=== PATIENT | male | born 1965 | race Caucasian/White ===

== ENCOUNTER 2016-06-26 11:24 | Inpatient (IN) | payer MEDICARE, OTHER ==
[2016-06-26] VITALS (9 sets, daily range): BP systolic 112–120; BP diastolic 53–60; PULSE 97–103; RESP 16–20; TEMP 98.3–98.9; O2SAT 94–98
[~2016-06-26] VITALS: Ht 182.9 cm; Wt 129.4 kg
[~2016-06-26 11:24] MED LIST: DILTCD180 PO; DOCU1CAP39 PO; FURO1TAB93 PO; LACT20SO4 PO; SPIR50TA21 PO
[2016-06-26] MEDS ORDERED: SODIUM CHLOR 0.9% 1000 ML INJ 1,000 ML IV SCH ×2 (12:49→16:15)
--- NOTE | 2016-06-26 12:59 | PD ---
HPI Chief Complaint: Abdominal Pain Time Seen by Provider: 12:35 Travel History International Travel<30 days: No Contact w/Intl Traveler<30days: No Traveled to known affect area: No History of Present Illness HPI 51-year-old male complains of abdominal pain. Patient has history of liver cirrhosis abdominal hernia and chronic abdominal pain. Patient states that he was advised by his physician to be in hospice so he can get pain medication. Patient states that the pain cramping pain and sharp pain diffuse over the abdomen. Patient denies any pain radiation. Patient denies any nausea vomiting diarrhea. Patient denies any fever chills. Patient Denies dysuria or frequency. Patient has history of kidney disease was on dialysis in the past. Patient also has history of anxiety, asthma, depression, diabetes, hepatitis C, hypertension, migraine and sleep apnea. Patient states that the abdominal pain is worse for the past few days and he was advised by his physician to go to ED for evaluation. PFSH Past Medical History Arthritis: Yes Asthma: Yes Autoimmune Disease: No Blood Disorders: No Anxiety: Yes (OCCASSIONALLY) Depression: Yes Heart Rhythm Problems: Yes (HEART MURMUR) Cancer: No Cardiovascular Problems: Yes High Cholesterol: No Chest Pain: Yes Congestive Heart Failure: No Cirrhosis: Yes COPD: No Cerebrovascular Accident: No Diabetes: Yes Patient Takes Glucophage: No Dialysis: Yes (10 years ago) Diminished Hearing: No Endocrine: Yes Gastrointestinal Disorders: Yes GERD: No Glaucoma: No Genitourinary: No Headaches: No Hepatitis: Yes (HEP C) Hiatal Hernia: No Hypertension: Yes Immune Disorder: No Implanted Vascular Access Dvce: Yes Kidney Stones: No Musculoskeletal: Yes Neurologic: Yes Psychiatric: Yes Reproductive: No Respiratory: Yes Migraines: Yes Myocardial Infarction: No Renal Failure: No Seizures: No Sleep Apnea: Yes Thyroid Disease: No Ulcer: No Past Surgical History Abdominal Surgery: No Appendectomy: No Arteriovenous Shunt: No Body Medical Devices: SCREWS/TITANIUM IN RIGHT LEG Cardiac Surgery: No Cholecystectomy: No Ear Surgery: No Endocrine Surgery: No Eye Surgery: No Genitourinary Surgery: No Gynecologic Surgery: No Insulin Pump: No Joint Replacement: No Neurologic Surgery: No Oral Surgery: No Pacemaker: No Thoracic Surgery: No Other Surgery: Yes Social History Alcohol Use: No (DENIES) Tobacco Use: No (chews) Substance Use: Yes (ALCOHOL) Allergies-Medications (Allergen,Severity, Reaction): Coded Allergies: Morphine (Verified Adverse Reaction, Intermediate, Nausea/Vomiting, 06/26/16 ) *MDRO Multi-Drug Resistant Organism (Verified Adverse Reaction, Unknown, ) MRSA (arm wound) - 08/2008 Reported Meds & Prescriptions Reported Meds & Active Scripts Active Reported Potassium Chloride ER (Potassium Chloride) Unknown Strength Cap 1 Tab PO DAILY Pantothenic Acid 500 Mg Tab 1 Tab PO BID Lactulose Liq (Lactulose) 10 Gm/15 Ml Soln 30 Ml PO TID Aldactone (Spironolactone) 50 Mg Tab 50 Mg PO BID Lasix (Furosemide) 40 Mg Tab 40 Mg PO TID Review of Systems General / Constitutional: No: Fever Eyes: No: Visual changes HENT: No: Headaches Cardiovascular: No: Chest Pain or Discomfort Respiratory: No: Shortness of Breath Gastrointestinal: Positive: Abdominal Pain Genitourinary: No: Dysuria Musculoskeletal: No: Pain Skin: No Rash Neurologic: No: Weakness Psychiatric: No: Depression Endocrine: No: Polydipsia Hematologic/Lymphatic: No: Easy Bruising Physical Exam Narrative GENERAL: Well-nourished, well-developed patient. SKIN: Focused skin assessment warm/dry. HEAD: Normocephalic. EYES: No scleral icterus. No injection or drainage. NECK: Supple, trachea midline. No JVD or lymphadenopathy. CARDIOVASCULAR: Regular rate and rhythm without murmurs, gallops, or rubs. RESPIRATORY: Breath sounds equal bilaterally. No accessory muscle use. GASTROINTESTINAL: Abdomen soft, nondistended. Patient has moderate tenderness diffuse over the abdomen with a ventral hernia noted. No rebound tenderness. No mass. MUSCULOSKELETAL: No cyanosis, or edema. BACK: Nontender without obvious deformity. No CVA tenderness. Neurologic exam normal. Data Data Last Documented VS Vital Signs Date Time Temp Pulse Resp B/P Pulse Ox O2 Delivery O2 Flow Rate FiO2 06/26/16 15:55 99 18 116/56 95 Room Air 06/26/16 11:36 98.3 Orders Vascular Access Team Consult PRN (06/26/16 12:49) Complete Blood Count With Diff (06/26/16 12:49) Comprehensive Metabolic Panel (06/26/16 12:49) Lipase (06/26/16 12:49) Prothrombin Time / Inr (Pt) (06/26/16 12:49) Act Partial Throm Time (Ptt) (06/26/16 12:49) Urinalysis - C+S If Indicated (06/26/16 12:49) Ct Abd/Pel W Iv Contrast(Rout) (06/26/16 12:49) Iv Access Insert/Monitor (06/26/16 12:49) Ecg Monitoring (06/26/16 12:49) Oximetry (06/26/16 12:49) Ondansetron Inj (Zofran Inj) (06/26/16 13:00) Pantoprazole Inj (Protonix Inj) (06/26/16 13:00) Sodium Chlor 0.9% 1000 Ml Inj (Ns 1000 M (06/26/16 12:49) Hydromorphone Pf Inj (Dilaudid Pf Inj) (06/26/16 13:00) Ammonia (06/26/16 12:59) Vascular Access Team Consult PRN (06/26/16 13:02) Vascular Poc Ultrasound (06/26/16 ) Urine Culture (06/26/16 13:07) Iohexol 350 Inj (Omnipaque 350 Inj) (06/26/16 14:47) Fresh Frozen Plasma (Ffp) (06/26/16 15:58) Blood Product Administration .UPON TRANSFUSION (06/26/16 15:58) Sodium Chlor 0.9% 250 Ml Inj (Ns 250 Ml (06/26/16 16:00) Sodium Chlor 0.9% 1000 Ml Inj (Ns 1000 M (06/26/16 16:15) Blood Culture (06/26/16 16:28) Lactic Acid Sepsis Protocol (06/26/16 16:28) Piperacil-Tazo 3.375 Gm Premix (Zosyn 3. (06/26/16 16:30) Vancomycin Inj (Vancomycin Inj) (06/26/16 16:30) Labs Laboratory Tests Test 06/26/16 13:07 White Blood Count 20.1 TH/MM3 Red Blood Count 2.56 MIL/MM3 Hemoglobin 9.2 GM/DL Hematocrit 26.3 % Mean Corpuscular Volume 102.8 FL Mean Corpuscular Hemoglobin 35.9 PG Mean Corpuscular Hemoglobin 34.9 % Concent Red Cell Distribution Width 15.3 % Platelet Count 124 TH/MM3 Mean Platelet Volume 8.0 FL Neutrophils (%) (Auto) 88.8 % Lymphocytes (%) (Auto) 3.9 % Monocytes (%) (Auto) 6.1 % Eosinophils (%) (Auto) 0.7 % Basophils (%) (Auto) 0.5 % Neutrophils # (Auto) 17.8 TH/MM3 Lymphocytes # (Auto) 0.8 TH/MM3 Monocytes # (Auto) 1.2 TH/MM3 Eosinophils # (Auto) 0.1 TH/MM3 Basophils # (Auto) 0.1 TH/MM3 CBC Comment DIFF FINAL Differential Comment Prothrombin Time 21.4 SEC Prothromb Time International 1.9 RATIO Ratio Activated Partial 45.7 SEC Thromboplast Time Urine Color DARK-YELLOW Urine Turbidity HAZY Urine pH 5.5 Urine Specific [place] 1.016 Urine Protein TRACE mg/dL Urine Glucose (UA) NEG mg/dL Urine Ketones NEG mg/dL Urine Occult Blood SMALL Urine Nitrite NEG Urine Bilirubin SMALL Urine Urobilinogen 2.0 MG/DL Urine Leukocyte Esterase LARGE Urine RBC 1 /hpf Urine WBC 91 /hpf Urine Squamous Epithelial <1 /hpf Cells Urine Bacteria FEW /hpf Urine Hyaline Casts 2 /lpf Microscopic Urinalysis Comment CULTURE INDICATED Sodium Level 130 MEQ/L Potassium Level 4.9 MEQ/L Chloride Level 101 MEQ/L Carbon Dioxide Level 22.3 MEQ/L Anion Gap 7 MEQ/L Blood Urea Nitrogen 40 MG/DL Creatinine 1.62 MG/DL Estimat Glomerular Filtration 45 ML/MIN Rate Random Glucose 108 MG/DL Calcium Level 8.0 MG/DL Total Bilirubin 5.1 MG/DL Aspartate Amino Transf 49 U/L (AST/SGOT) Alanine Aminotransferase 25 U/L (ALT/SGPT) Alkaline Phosphatase 140 U/L Ammonia 46 MCMOL/L Total Protein 8.1 GM/DL Albumin 1.4 GM/DL Lipase 172 U/L [facility] Medical Decision Making Medical Screen Exam Complete: Yes Emergency Medical Condition: Yes Interpretation(s) Last Impressions Abdomen/Pelvis CT 06/26/16 2199 Signed Impressions: Service Date/Time: Sunday, June 26, 2016 14:26 - CONCLUSION: 1. 10.1 x 14.5 cm high density mass within the left rectus sheath most consistent with rectus hematoma. 2. Diffuse induration of the subcutaneous soft tissues in the left flank possibly related to asymmetric edema however underlying cellulitis could have this appearance as well. 3. Cirrhotic appearing liver with enlargement of the spleen, varices and ascites. Findings would be consistent with cirrhosis and portal hypertension. Christian Mejia MD 1533 PM. CBC WBC 20.1. Hemoglobin 9.2 hematocrit 26.3. MCV 102.8. 88 neutrophil. Sodium 130. BUN 40. Creatinine 1.62. Calcium 8.0. Total bili 5.1. AST 49. Alkaline phosphatase 140. Ammonia 46. INR 1.9. UA positive with WBC and bacteria. Differential Diagnosis Differential diagnosis including acute coronary abdominal pain, incarcerated hernia, strangulate it hernia, gastritis, pancreatitis, colitis, UTI, pyelonephritis, nephrolithiasis. Narrative Course 51-year-old male with exacerbation abdominal pain. History of liver cirrhosis and abdominal hernia. Normal saline solution 125 cc an hour. Dilaudid 1 mg IV. Zofran 4 mg IV. Protonix 40 mg IV. Fresh frozen plasma 2 units given. Zosyn 3.375 g IV given. Vancomycin 1 g IV given. Diagnosis Primary Impression: Abdominal wall hematoma Qualified Code: S30.1XXA - Abdominal wall hematoma, initial encounter Additional Impressions: UTI (urinary tract infection) Qualified Code: N30.00 - Acute cystitis without hematuria Liver cirrhosis Qualified Code: K70.30 - Alcoholic cirrhosis of liver without ascites Coagulopathy Jaun Rivero MD Jun 26, 2016 12:59
[2016-06-26] MEDS ORDERED: HYDROmorphone HCL PF 1 MG/ML VIAL IVS ONE (13:00)
[2016-06-26] MEDS ORDERED: ONDANSETRON HCL 4 MG/2 ML VIAL IVP ONE (13:00)
[2016-06-26] MEDS ORDERED: PANTOPRAZOLE SODIUM 40 MG VIAL IVP ONE (13:00)
[2016-06-26 13:33] LABS: AUTOMATED NEUTROPHIL # 17.8 TH/MM3 (1.8-7.7); BASOPHIL # 0.1 TH/MM3 (0-0.2); BASOPHIL % 0.5 % (0.0-2.0); EOSINOPHIL # 0.1 TH/MM3 (0-0.4); EOSINOPHIL % 0.7 % (0.0-4.0); HEMATOCRIT 26.3 % (39.0-51.0); HEMO FLAGS DIFF FINAL; LYMPH % 3.9 % (9.0-44.0); LYMPHOCYTE # 0.8 TH/MM3 (1.0-4.8); MEAN CELL VOLUME 102.8 FL (80.0-100.0); MEAN CORPUSCULAR HEMOGLOBIN 35.9 PG (27.0-34.0); MEAN CORPUSCULAR HGB CONC 34.9 % (32.0-36.0); MONO % 6.1 % (0.0-8.0); NEUT % 88.8 % (16.0-70.0); PLATELET COUNT 124 TH/MM3 (150-450); RED BLOOD COUNT 2.56 MIL/MM3 (4.50-5.90); RED CELL DISTRIBUTION WIDTH 15.3 % (11.6-17.2); WHITE BLOOD COUNT 20.1 TH/MM3 (4.0-11.0)
[2016-06-26 13:35] LABS: APTT (PATIENT) 45.7 SEC (24.3-30.1); INTERNATIONAL NORMALIZED RATIO 1.9 RATIO; PROTHROMBIN TIME - PATIENT 21.4 SEC (9.8-11.6)
[2016-06-26 13:39] LABS: BACTERIA, URINE FEW /hpf; BLOOD, URINE SMALL (NEG); COMMENT (UR) CULTURE INDICATED; CULTURE IF INDICATED CULTURE INDICATED; GLUCOSE,URINE NEG (NEG); HYALINE CAST, URINE 2 /lpf (RARE); KETONE, URINE NEG (NEG); NITRITE,URINE NEG (NEG); PH, URINE 5.5 (5.0-8.5); SQUAMOUS EPITHELIAL CELL URINE <1 /hpf (0-5); URINE COLOR DARK-YELLOW (YELLW/STRAW)
[2016-06-26 13:40] LABS: ALT (GPT) 25 U/L (12-78); ANION GAP 7 MEQ/L (5-15); AST (GOT) 49 U/L (15-37); BICARBONATE 22.3 MEQ/L (21.0-32.0); BLOOD UREA NITROGEN 40 MG/DL (7-18); CHLORIDE 101 MEQ/L (98-107); GLOMERULAR FILTRATION RATE 45 ML/MIN (>89); POTASSIUM 4.9 MEQ/L (3.5-5.1); SODIUM (NA) 130 MEQ/L (136-145)
[2016-06-26 13:42] LABS: ALKALINE PHOSPHATASE 140 U/L (45-117); TOTAL BILIRUBIN ADULT 5.1 MG/DL (0.2-1.0)
[2016-06-26] MEDS ORDERED: IOHEXOL 350 MG/ML 10 ML VIAL (for RAD DIAG) IV ONE (14:47)
--- NOTE | 2016-06-26 14:57 | RADRPT ---
EXAM DATE/TIME: 06/26/2016 14:26 [place] COMPARISON: CT PULMONARY ANGIOGRAM, June 11, 2015, 11:19. INDICATIONS : Diffuse abdominal pain and cramping. IV CONTRAST: 50 cc Visipaque (iodixanol) IV ORAL CONTRAST: No oral contrast ingested. RADIATION DOSE: 26.48 CTDIvol (mGy) MEDICAL HISTORY : Cirrhosis. Renal failure, chronic. Diabetes mellitus type 2.Hepatitis C, hypertension. SURGICAL HISTORY : None. ENCOUNTER: Initial ACUITY: 1 week PAIN SCALE: 6/10 LOCATION: Bilateral abdomen TECHNIQUE: Volumetric scanning of the abdomen and pelvis was performed. Using automated exposure control and ad justment of the mA and/or kV according to patient size, radiation dose was kept as low as reasonably achievable to obtain optimal diagnostic quality images. FINDINGS: The limited portion of the lung base visualized is clear. Imaging through the upper abdomen demonstrates a lobulated, cirrhotic appearing liver with a small am ount of diffuse ascites. The spleen is enlarged. There is recanalization of the umbilical vein. Findi ngs would be consistent with cirrhosis and portal hypertension. The appearance of the pancreas, adrenal glands and kidneys is within normal limits. There is no retroperitoneal adenopathy. The abdominal aorta is normal in caliber. Visualized loops of small and large bowel are unremarkable. Examination of the anterior abdominal wall demonstrates a 14.5 x 10.1 cm high density mass within the rectus sheath this would be most consistent with a rectus sheath hematoma. In addition, there is dif fuse induration of the subcutaneous tissues along the left flank. This probably represents dependent edema but is of uncertain etiology. Underlying infection/cellulitis in this area is not excluded. There is minimal ascites within the pelvis. No iliac or inguinal adenopathy is seen. There are degenerative changes throughout the spine. CONCLUSION: 1. 10.1 x 14.5 cm high density mass within the left rectus sheath most consistent with rectus hematom a. 2. Diffuse induration of the subcutaneous soft tissues in the left flank possibly related to asymmetr ic edema however underlying cellulitis could have this appearance as well. 3. Cirrhotic appearing liver with enlargement of the spleen, varices and ascites. Findings would be c onsistent with cirrhosis and portal hypertension. Christian Mejia MD on June 26, 2016 at 14:51 Board Certified Radiologist. This report was verified electronically.
[2016-06-26] MEDS ORDERED: SODIUM CHLOR 0.9% 250 ML INJ 250 ML IV ONE (16:00)
[2016-06-26] MEDS ORDERED: ALDA50TA2 PO (16:18)
[2016-06-26] MEDS ORDERED: FURO1TAB60 PO (16:18)
[2016-06-26] MEDS ORDERED: [UNRECOGNIZED DRUG - CODE] PO (16:22)
[2016-06-26] MEDS ORDERED: LACT10SO PO (16:22)
[2016-06-26] MEDS ORDERED: POTA10CA PO (16:22)
[2016-06-26] MEDS ORDERED: PIPERACIL-TAZO 3.375 GM PREMIX 50 ML IV ONE (16:30)
[2016-06-26] MEDS ORDERED: VANCOMYCIN INJ 1,000 MG in SODIUM CHLOR 0.9% 250 ML INJ 250 ML IV ONE (16:30)
[2016-06-26] MEDS ORDERED: NALOXONE HCL 0.4 MG/ML AMP IV PRN (17:15)
[2016-06-26] MEDS ORDERED: ONDANSETRON HCL 4 MG/2 ML VIAL IVP PRN (17:15)
--- NOTE | 2016-06-26 17:22 | HHI.HP ---
HPI Service [facility] Primary [facility] Phys[facility] Non-Staff Admission Diagnosis abdominal wall hematoma. Liver cirrhosis. Coagulopathy. Diagnoses: Chief Complaint: Abdominal pain Travel History International Travel<30 Days: No Contact w/Intl Traveler <30 Da: No Traveled to Known Affected Are: No Sepsis Criteria SIRS Criteria (2 or more): Heart rate over 90, WBC > 97515, < 4000 or > 10% bands Sepsis Criteria (SIRS+source): Infect source susp/known Criteria Outcome: Meets sepsis criteria History of Present Illness 51-year-old male with a past medical history of cirrhosis who presents with progressive worsening abdominal pain and swelling. The patient states that in February he noticed the swelling of his left abdominal wall. He was seen by his PCP and subsequently at the Hospital in [place] and had imaging done with results consistent with a hernia. He states that his PCP has been managing the swelling with tramadol and had advised the patient to get physical therapy and rehabilitation. The patient states that the pain and swelling have been getting progressively worse since February. He states the pain is constantly 8/ 10 in severity, and up to 10/10 whenever he tries to move. He states he follows with [facility] in [place]. He states that his hepatitis C has been treated. He admits to subjective chills, no fevers. He denies any chest pain, shortness breath, nausea, vomiting, dysuria. He has loose stools from lactulose, states he's actually been increasing his dose lately because he has been noticing confusion. He reports easy bruising. He states occasionally he has dark stools and dark urine in the morning. Review of Systems Except as stated in HPI: all other systems reviewed are Neg Past Family Social History Past Medical History Cirrhosis with past history of alcohol abuse and hepatitis C s/p treatment History of diabetes mellitus, states it is well controlled and he has low glucose Past Surgical History Tib-fib surgery 2 on both legs, 4 surgeries total Reported Medications Potassium Chloride ER (Potassium Chloride) Unknown Strength Cap 1 Tab PO DAILY Pantothenic Acid 500 Mg Tab 1 Tab PO BID Lactulose Liq (Lactulose) 10 Gm/15 Ml Soln 30 Ml PO TID Aldactone (Spironolactone) 50 Mg Tab 50 Mg PO BID Lasix (Furosemide) 40 Mg Tab 40 Mg PO TID Allergies: Coded Allergies: Morphine (Verified Adverse Reaction, Intermediate, Nausea/Vomiting, 06/26/16 ) *MDRO Multi-Drug Resistant Organism (Verified Adverse Reaction, Unknown, ) MRSA (arm wound) - 08/2008 Active Ordered Medications Current Medications Medications (Trade) Dose Ordered Sig/Srini Route Start Time Stop Time Status Last Admin Sodium Chloride 1,000 ml @ 125 mls/hr Q8H IV 06/26/16 12:49 06/26/16 20:48 06/26/16 12:49 Sodium Chloride 250 ml @ 15 mls/hr ONCE ONCE IV 06/26/16 16:00 06/27/16 08:39 (Vancomycin Inj/ NS 250 ml Inj) 250 ml @ 250 mls/hr ONCE ONCE IV 06/26/16 16:30 06/26/16 17:29 (Aldactone) 50 mg BID PO 06/26/16 21:00 UNV (Lasix) 40 mg BID@09,18 PO 06/26/16 18:00 UNV (Lactulose Liq) 30 ml BID PO 06/26/16 21:00 UNV Family History Father has heart disease Mother of multiple myeloma Social History History of alcohol abuse, states he quit several years ago History of drug use, states he quit narcotics years ago, still occasionally uses marijuana Quit smoking tobacco 10 years ago 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 In no acute distress. SKIN: Warm and dry. Jaundiced. HEENT: Normocephalic. Pupils equal and round. Mucous membranes pink and moist. CARDIOVASCULAR: Regular rate and rhythm. No murmur appreciated. RESPIRATORY: No accessory muscle use. Clear to auscultation. Breath sounds equal bilaterally. GASTROINTESTINAL: Abdomen with large area of swelling and induration in the left lower quadrant extending to the left flank, edematous/indurated soft tissue of the left flank. MUSCULOSKELETAL: No obvious deformities. No clubbing or cyanosis. 3+ lower extremity edema. NEUROLOGICAL: Awake and alert. No focal neurological deficits. Moves upper and lower extremities spontaneously. Normal speech. A bit slow to respond sometimes. PSYCHIATRIC: Appropriate mood and affect; insight and judgment normal. Laboratory Laboratory Tests Test 06/26/16 06/26/16 13:07 16:27 White Blood Count 20.1 Red Blood Count 2.56 Hemoglobin 9.2 Hematocrit 26.3 Mean Corpuscular Volume 102.8 Mean Corpuscular Hemoglobin 35.9 Mean Corpuscular Hemoglobin 34.9 Concent Red Cell Distribution Width 15.3 Platelet Count 124 Mean Platelet Volume 8.0 Neutrophils (%) (Auto) 88.8 Lymphocytes (%) (Auto) 3.9 Monocytes (%) (Auto) 6.1 Eosinophils (%) (Auto) 0.7 Basophils (%) (Auto) 0.5 Neutrophils # (Auto) 17.8 Lymphocytes # (Auto) 0.8 Monocytes # (Auto) 1.2 Eosinophils # (Auto) 0.1 Basophils # (Auto) 0.1 CBC Comment DIFF FINAL Differential Comment Prothrombin Time 21.4 Prothromb Time International 1.9 Ratio Activated Partial 45.7 Thromboplast Time Urine Color DARK-YELLOW Urine Turbidity HAZY Urine pH 5.5 Urine Specific [place] 1.016 Urine Protein TRACE Urine Glucose (UA) NEG Urine Ketones NEG Urine Occult Blood SMALL Urine Nitrite NEG Urine Bilirubin SMALL Urine Urobilinogen 2.0 Urine Leukocyte Esterase LARGE Urine RBC 1 Urine WBC 91 Urine Squamous Epithelial <1 Cells Urine Bacteria FEW Urine Hyaline Casts 2 Microscopic Urinalysis Comment CULTURE INDICATED Sodium Level 130 Potassium Level 4.9 Chloride Level 101 Carbon Dioxide Level 22.3 Anion Gap 7 Blood Urea Nitrogen 40 Creatinine 1.62 Estimat Glomerular Filtration 45 Rate Random Glucose 108 Calcium Level 8.0 Total Bilirubin 5.1 Aspartate Amino Transf 49 (AST/SGOT) Alanine Aminotransferase 25 (ALT/SGPT) Alkaline Phosphatase 140 Ammonia 46 Total Protein 8.1 Albumin 1.4 Lipase 172 Blood Bank Comment Date/Time Procedure Status Source Growth 06/26/16 16:41 Aerobic Blood Culture Received Blood Peripheral Pending 06/26/16 16:41 Anaerobic Blood Culture Received Blood Peripheral Pending 06/26/16 13:07 Urine Culture Received Urine Clean Catch Pending Result Diagram: 06/26/16 1307 06/26/16 1307 Imaging Last Impressions Abdomen/Pelvis CT 06/26/16 1249 Signed Impressions: Service Date/Time: Sunday, June 26, 2016 14:26 - CONCLUSION: 1. 10.1 x 14.5 cm high density mass within the left rectus sheath most consistent with rectus hematoma. 2. Diffuse induration of the subcutaneous soft tissues in the left flank possibly related to asymmetric edema however underlying cellulitis could have this appearance as well. 3. Cirrhotic appearing liver with enlargement of the spleen, varices and ascites. Findings would be consistent with cirrhosis and portal hypertension. Christian Mejia MD Assessment and Plan Assessment and Plan 51-year-old male with a past medical history of cirrhosis who presents with progressive worsening abdominal pain and swelling Left rectus abdominis hematoma Left flank cellulitis Coagulopathy secondary to cirrhosis Images reviewed: Abdominal CT with 10.114.5 cm mass within the left rectus sheath consistent with rectus hematoma; diffuse induration of the subcutaneous soft tissue in the left flank possibly related to asymmetric edema vs cellulitis. Labs reviewed: WBC elevated from previous at 20 8. Hemoglobin and platelets decreased, but consistent with previous labs, stable at this time. INR 1.9, previously 1.3 on 04/02/15. -2 units FFP ordered from the ED. -Consult general surgery -Monitor CBC -IV vancomycin and Zosyn -Pain control with oxycodone and IV Dilaudid Sepsis: WBC elevation, tachycardia. Cellulitis as above. Possible UTI. Lactic acid pending. Continue IV antibiotics. Follow-up blood cultures. UTI: Patient reports dark foul-smelling urine. UA with evidence of possible UTI. Continue IV antibiotics as above. Follow-up urine culture. Cirrhosis with hepatic encephalopathy and edema: Elevated ammonia and bilirubin. Continue Lasix and Aldactone as tolerated. Titrate lactulose for 3 5 loose bowel movements daily. Acute kidney injury: Creatinine 1.62, previously 1.27 on 05/30/16. Likely from overdiuresis. Patient appears volume overloaded. DC IVF. Decrease diuresis. Macrocytic anemia: Acute blood loss from hematoma as above on chronic anemia. Hemoglobin 9.2, previously 9.9 and 05/30/16. Check B12, folate, and iron studies. Transfusions as indicated. DVT prophylaxis: No chemoprophylaxis with bleeding. ALEX hernandez with edema. Discussed Condition With Patient, Dr. Rivero, Dr. Odell Attending Statement 51 years old male,history of liver cirrhosi from alcohol and Hep C - having abdominal pain on and off for past 3 months- worsening presented to ER today with increasing pain - denies any fever, trauma or nausea vomiting, BM regular on work up shows rectus sheath hematoma exam- abdomen -tender to touch, distended, mild surrounding erythema anterior abdomen lungs- no rales or wheezes regular rhythm extremities + edema A/P Sepsis secondary ? Infected Spontaneous rectus sheath hematoma with ventral hernia, Abdominal wall cellulitis Liver cirrhosis admit to monitor- started IV antibiotics. FF GS consulted for evaluation- continue home meds Acute Kidney injury monitor closely- on diuretics- dose reduced Deejay Hansen Jun 26, 2016 17:22 Janeth Odell MD Jun 26, 2016 19:03 Janeth Odell MD Jun 26, 2016 19:03
[2016-06-26] MEDS ORDERED: Vancomycin Consult Pharmacy 1 EA OTHER SCH (17:30)
[2016-06-26] MEDS: FUROSEMIDE 40 MG TAB PO SCH (18:23)
[2016-06-26] MEDS ORDERED: VANCOMYCIN INJ 1,500 MG in SODIUM CHLORID 0.9% 500 ML INJ 500 ML IV ONE (18:45)
[2016-06-26] MEDS: SODIUM CHLORIDE 0.9% FLUSH 10 ML FLUSH IV FLUSH SCH (20:52)
[2016-06-26] MEDS: LACTULOSE SYRUP 20 GM/30 ML CUP PO SCH (21:08)
[2016-06-26 22:42] LABS: HEMOGLOBIN A1a 0.8 %; HEMOGLOBIN A1b 0.8 %; HEMOGLOBIN Ao 87.7 %; HEMOGLOBIN F 0.6 %; HEMOGLOBIN LA1C 1.7 %; HEMOGLOBIN P3 4.5 %
[2016-06-26] MEDS: SPIRONOLACTONE 50 MG TAB PO SCH (22:52)
[2016-06-26] MEDS: PIPERACIL-TAZO 3.375 GM PREMIX 50 ML IV SCH (23:06)
[2016-06-26] MEDS: HYDROmorphone HCL PF 1 MG/ML VIAL IV PRN (23:13)
[2016-06-27] VITALS (10 sets, daily range): BP systolic 107–141; BP diastolic 50–85; PULSE 101–106; RESP 18–21; TEMP 97.6–99.5; O2SAT 93–96
--- NOTE | 2016-06-27 06:02 | MB ---
cc: SILVER TRUJILLO MD DATE OF CONSULTATION 06/26/2016 REASON FOR CONSULTATION Abdominal wall hematoma. HISTORY OF PRESENT ILLNESS The patient is a 51-year-old male with multiple medical issues including progressive cirrhosis, hepatitis C, worsening abdominal pain with swelling, left periumbilical abdominal wall hematoma. The patient states that this started gradually approximately in February. The patient was noted to have a hernia and states this swelling started around this time. He was treated initially with pain medications but the swelling progressed and continued to get worse, until within the last week she had significant pain and rapid growth. He came to emergency department for further evaluation including CT scan showing ascites, a cirrhotic liver and a large abdominal hematoma. The patient states again at times the pain is 9/10, currently 7/10. He does note the pain is also diffuse within his abdomen and exquisitely tender in other areas as well. He states he has never had this before. He denies any blood thinner use but does admit to hepatitis C with cirrhosis, but states he has had treatment for his hepatitis C. Also with diabetes and alcohol abuse. The patient did have coagulopathy in the emergency department with an INR of 8. Hemoglobin was within normal limits. On my exam the patient is resting. He does describe the pain as above. He denies any fevers or chills, chest pain or nausea or vomiting but states this pain is pretty significant. He does have intermittent bouts of confusion per nursing staff. PAST MEDICAL HISTORY 1. Cirrhosis. 2. Alcohol abuse. 3. Hepatitis C. 4. Diabetes. PAST SURGICAL HISTORY Tib-fib x 2 of both legs. MEDICATIONS See EMR. ALLERGIES Morphine. SOCIAL HISTORY History of EtOH abuse, quit years ago. History of smoking, quit greater than 10 years ago. History of narcotic use, quit but still occasionally uses THC. FAMILY HISTORY Father with CAD. Mother of multiple myeloma. REVIEW OF SYSTEMS GENERAL: Denies some fatigue and dizziness. HEENT: Denies eye pain, ear pain. NECK: Denies neck pain or swelling. RESPIRATORY: Denies wheeze or cough. CARDIOVASCULAR: Denies palpitations or chest pain. ABDOMEN: Complains of distension, some nausea. Denies vomiting. Complained of abdominal pain. MUSCULOSKELETAL: Complains of edema. Denies cyanosis. NEUROLOGIC: AO x 3. PSYCH: Good mood, appropriate affect. : Denies dysuria, hematuria. ENDOCRINE: History diabetes. Denies polyuria or polydipsia. PHYSICAL EXAMINATION GENERAL: Patient no acute distress. VITAL SIGNS: Temperature 98.3, pulse 100, respirations 60, blood pressure 112/53, pulse ox 98% on room air. HEENT: PERRLA. Jaundiced. Pupils equally round, reactive. NECK: Trachea midline, supple. LUNGS: Bilateral expansion. Clear. HEART: S1-S2, regular. ABDOMEN: Distended, obese. Ascitic fluid palpable, approximately 12 x 10-cm abdominal wall hematoma. No evidence of significant erythema. Some edema. Positive tenderness to palpation, diffuse abdominal. EXTREMITIES: Moving all extremities. Bilateral lower extremity edema. NEUROLOGIC: GCS of 15. 5/5 motor in extremities. PSYCH: Normal insight and affect. LABORATORY AND DIAGNOSTIC DATA WBC 20, hemoglobin 9.2, hematocrit 26.3, platelets 124,000. Sodium 130, potassium 4.9, CO2 101, BUN 40, creatinine 1.6, glucose 108. T-bili 5.1, AST 49, ALT 25, alk phos 140, ammonia 46, lipase 172. PT 21.4, INR 1.9, PTT 45.7. IMAGING STUDIES Reviewed by myself. CT ABDOMEN AND PELVIS 10 x 14 cm abdominal wall rectus sheath hematoma, some induration of the abdominal wall, cirrhotic liver, large spleen. Varices, ascites. ASSESSMENT The patient is a 51-year-old male with multiple medical issues including abdominal wall hematoma, ascites, coagulopathy, abdominal pain. PLAN Full clinical radiologic and laboratory workup. The patient with above-named issue including abdominal wall hematoma. At this point recommend correcting coagulopathy, the patient currently getting FFP. Reevaluate and recheck INR. The patient's hemoglobin is 9.2, appears stable. We will recheck this and reevaluate. The patient's abdominal wall hematoma at that this current time does not appear to be enlarging. However, I would consider discussion with interventional radiology for possible interventional radiology drain placement versus aspiration if infected or enlarging. Again, important to correct coagulopathy and stabilized and treat medically prior to any sort of intervention. This was discussed with the patient at bedside who states understanding. MD CELENA Arguello/JEFFREY /9:50 PM /5:45 AM KALEY
[2016-06-27 07:08] LABS: AUTOMATED NEUTROPHIL # 17.2 TH/MM3 (1.8-7.7); BASOPHIL # 0.1 TH/MM3 (0-0.2); BASOPHIL % 0.4 % (0.0-2.0); EOSINOPHIL # 0.2 TH/MM3 (0-0.4); EOSINOPHIL % 0.8 % (0.0-4.0); HEMO FLAGS DIFF FINAL; LYMPH % 4.1 % (9.0-44.0); LYMPHOCYTE # 0.8 TH/MM3 (1.0-4.8); MEAN CELL VOLUME 103.3 FL (80.0-100.0); MEAN CORPUSCULAR HEMOGLOBIN 35.9 PG (27.0-34.0); MEAN CORPUSCULAR HGB CONC 34.8 % (32.0-36.0); MONO % 6.9 % (0.0-8.0); NEUT % 87.8 % (16.0-70.0); PLATELET COUNT 113 TH/MM3 (150-450); RED BLOOD COUNT 2.32 MIL/MM3 (4.50-5.90); WHITE BLOOD COUNT 19.6 TH/MM3 (4.0-11.0)
[2016-06-27 07:47] LABS: ALT (GPT) 20 U/L (12-78); ANION GAP 8 MEQ/L (5-15); AST (GOT) 40 U/L (15-37); BICARBONATE 22.1 MEQ/L (21.0-32.0); BLOOD UREA NITROGEN 41 MG/DL (7-18); CHLORIDE 102 MEQ/L (98-107); GLOMERULAR FILTRATION RATE 37 ML/MIN (>89); POTASSIUM 4.7 MEQ/L (3.5-5.1); SODIUM (NA) 132 MEQ/L (136-145); TRANSFERRIN IRON PROFILE 89 MG/DL (200-360)
[2016-06-27] MEDS ORDERED: VANCOMYCIN INJ 1,200 MG in SODIUM CHLOR 0.9% 250 ML INJ 250 ML IV SCH (08:00)
[2016-06-27 08:12] LABS: ALKALINE PHOSPHATASE 112 U/L (45-117); FERRITIN 416 NG/ML (26-388); TOTAL BILIRUBIN ADULT 5.2 MG/DL (0.2-1.0)
[2016-06-27] MEDS: SODIUM CHLORIDE 0.9% FLUSH 10 ML FLUSH IV FLUSH SCH ×2 (09:06→23:16)
[2016-06-27] MEDS: FUROSEMIDE 40 MG TAB PO SCH (09:06)
[2016-06-27] MEDS: LACTULOSE SYRUP 20 GM/30 ML CUP PO SCH (09:06)
[2016-06-27] MEDS: SPIRONOLACTONE 50 MG TAB PO SCH ×2 (09:06→23:15)
[2016-06-27] MEDS: PIPERACIL-TAZO 3.375 GM PREMIX 50 ML IV SCH ×3 (09:07→23:23)
[2016-06-27] MEDS: HYDROmorphone HCL PF 1 MG/ML VIAL IV PRN ×3 (09:10→15:26)
[2016-06-27 09:51] LABS: INTERNATIONAL NORMALIZED RATIO 1.9 RATIO; PROTHROMBIN TIME - PATIENT 21.9 SEC (9.8-11.6)
--- NOTE | 2016-06-27 13:35 | HHI.PR ---
Subjective Remarks abdominal pain -relieved with pain meds- patient resting comfortably positive loose stools- (patient on Lactulose too) voiding spontaneously- no dysuria Objective Vitals Vital Signs Date Time Temp Pulse Resp B/P Pulse Ox O2 Delivery O2 Flow Rate FiO2 06/27/16 12:00 98.6 103 20 111/50 95 06/27/16 09:28 93 21 06/27/16 08:00 99.1 106 20 107/53 95 06/27/16 06:50 98.1 105 21 115/60 96 06/27/16 01:29 98.6 104 18 112/53 95 06/27/16 01:09 97.6 104 20 113/56 95 06/27/16 00:45 97.6 104 20 113/56 95 06/26/16 19:09 98.4 99 20 117/57 95 Room Air 06/26/16 19:00 98.4 99 18 117/57 97 Room Air 06/26/16 18:30 98.9 100 18 120/60 97 Room Air 06/26/16 17:36 103 16 119/58 94 Room Air 06/26/16 15:55 99 18 116/56 95 Room Air 06/26/16 14:03 99 18 116/56 96 Room Air 06/26/16 14:01 18 96 Room Air I/O 06/26/16 06/26/16 06/26/16 06/27/16 06/27/16 06/27/16 07:00 15:00 23:00 07:00 15:00 23:00 Intake Total 400 ml Output Total 300 ml Balance 100 ml Intake Oral 400 ml Output Urine Total 300 ml # Bowel Movements 0 Result Diagram: 06/27/16 0644 06/27/16 0644 Imaging Last Impressions Abdomen/Pelvis CT 06/26/16 1249 Signed Impressions: Service Date/Time: Sunday, June 26, 2016 14:26 - CONCLUSION: 1. 10.1 x 14.5 cm high density mass within the left rectus sheath most consistent with rectus hematoma. 2. Diffuse induration of the subcutaneous soft tissues in the left flank possibly related to asymmetric edema however underlying cellulitis could have this appearance as well. 3. Cirrhotic appearing liver with enlargement of the spleen, varices and ascites. Findings would be consistent with cirrhosis and portal hypertension. Christian Mejia MD Objective Remarks awake and alert, NAD mild icteresia no throuat exudates lungs no rales or wheezes regular rhythm abdomen- distended, + firmness on left abdominal area, much less tender c/w yesterday's exam, + bowel sounds abdominal wall erythema- resolved extremities + edema neuro exam- non focal A/P Assessment and Plan A/P 51 years old male Sepsis secondary ? Infected Spontaneous rectus sheath hematoma Abdominal wall cellulitis- improved Leukocytosis Large ventral hernia Abdominal CT with 10.114.5 cm mass within the left rectus sheath consistent with rectus hematoma; diffuse induration of the subcutaneous soft tissue in the left flank possibly related to asymmetric edema vs cellulitis. GS ff- plan for possible explore lap. IR consulted for possible drainage of rectus sheath hematoma Continue IV zosyn. - DC Vanco check c diff (loose stools - but on Lactulose) ID consult for recommendation if leukocytosis persists Liver cirrhosis- no encephalopathy continue on lactulose- hold temporarily check c diff Acute Kidney injury- non oliguric Decrease Lasix to 20 mg bid monitor closely- on diuretics- dose reduced Coagulopathy secondary to cirrhosis -2 units FFP ordered from the ED. Pain control with oxycodone and IV Dilaudid Macrocytic anemia: Acute blood loss from hematoma as above on chronic anemia. CBC in am Janeth Odell MD Jun 27, 2016 13:35
--- NOTE | 2016-06-27 15:45 | HHI.PR ---
Subjective Subjective Notes Resting in bed Painful Objective Vitals/I&O Vital Signs Date Time Temp Pulse Resp B/P Pulse Ox O2 Delivery O2 Flow Rate FiO2 06/27/16 12:00 98.6 103 20 111/50 95 06/27/16 09:28 21 06/26/16 19:09 Room Air Labs Laboratory Tests Test 06/26/16 06/26/16 06/27/16 06/27/16 16:27 16:41 06:44 09:13 Blood Bank Comment Lactic Acid Level 1.6 White Blood Count 19.6 Red Blood Count 2.32 Hemoglobin 8.3 Hematocrit 24.0 Mean Corpuscular Volume 103.3 Mean Corpuscular Hemoglobin 35.9 Mean Corpuscular Hemoglobin 34.8 Concent Red Cell Distribution Width 15.0 Platelet Count 113 Mean Platelet Volume 7.5 Neutrophils (%) (Auto) 87.8 Lymphocytes (%) (Auto) 4.1 Monocytes (%) (Auto) 6.9 Eosinophils (%) (Auto) 0.8 Basophils (%) (Auto) 0.4 Neutrophils # (Auto) 17.2 Lymphocytes # (Auto) 0.8 Monocytes # (Auto) 1.3 Eosinophils # (Auto) 0.2 Basophils # (Auto) 0.1 CBC Comment DIFF FINAL Differential Comment Sodium Level 132 Potassium Level 4.7 Chloride Level 102 Carbon Dioxide Level 22.1 Anion Gap 8 Blood Urea Nitrogen 41 Creatinine 1.92 Estimat Glomerular Filtration 37 Rate Random Glucose 82 Calcium Level 7.8 Iron Level 76 Total Iron Binding Capacity 125 Percent Iron Saturation 61.0 Ferritin 416 Total Bilirubin 5.2 Aspartate Amino Transf 40 (AST/SGOT) Alanine Aminotransferase 20 (ALT/SGPT) Alkaline Phosphatase 112 Total Protein 7.3 Albumin 1.5 Vitamin B12 Level GREATER THAN 2000 Folate 9.5 Prothrombin Time 21.9 Prothromb Time International 1.9 Ratio Date/Time Procedure Status Source Growth 06/26/16 16:41 Aerobic Blood Culture - Preliminary Resulted Blood Peripheral NO GROWTH IN 1 DAY 06/26/16 16:41 Anaerobic Blood Culture - Preliminary Resulted Blood Peripheral NO GROWTH IN 1 DAY 06/26/16 13:07 Urine Culture - Preliminary Resulted Urine Clean Catch NO GROWTH IN 24 HOURS. Cardiovascular: Regular Lungs: Clear Abdomen: Other (Large LEFT abdominal wall hematoma ) Extremities: No edema A/P Assessment and Plan 51 year old male with large LEFT abdominal wall hematoma -no IR drain at this time -INR 1.9; management per Primary Team -Okay from GS standpoint for diet -Pain control Attending Statement patient seen at bedside pain control if increasing or infected then IR Attestation The exam, history, and the medical decision-making described in the above note were completed with the assistance of the mid-level provider. I reviewed and agree with the findings presented. I attest that I had a [id number] encounter with the patient on the same day, and personally performed and documented my assessment and findings in the medical record. Najma Garcia Jun 27, 2016 15:45 Sami Segura MD Jul 07, 2016 17:45
[2016-06-27] MEDS: FUROSEMIDE 20 MG TAB PO SCH (17:33)
[2016-06-27] MEDS: SODIUM CHLORIDE 0.9% FLUSH 10 ML FLUSH IV FLUSH PRN (17:34)
[2016-06-27] MEDS ORDERED: PHARMACY ORDERED LAB ONE (19:45)
[2016-06-28] VITALS (15 sets, daily range): BP systolic 98–119; BP diastolic 49–65; PULSE 90–105; RESP 16–21; TEMP 97.2–99.3; O2SAT 92–99
[2016-06-28 06:58] LABS: AUTOMATED NEUTROPHIL # 16.1 TH/MM3 (1.8-7.7); BASOPHIL # 0.1 TH/MM3 (0-0.2); BASOPHIL % 0.4 % (0.0-2.0); EOSINOPHIL # 0.2 TH/MM3 (0-0.4); EOSINOPHIL % 0.9 % (0.0-4.0); HEMATOCRIT 22.1 % (39.0-51.0); LYMPH % 5.4 % (9.0-44.0); MEAN CELL VOLUME 102.9 FL (80.0-100.0); MEAN CORPUSCULAR HEMOGLOBIN 35.5 PG (27.0-34.0); MEAN CORPUSCULAR HGB CONC 34.5 % (32.0-36.0); MONO % 7.2 % (0.0-8.0); NEUT % 86.1 % (16.0-70.0); PLATELET COUNT 97 TH/MM3 (150-450); RED BLOOD COUNT 2.15 MIL/MM3 (4.50-5.90); RED CELL DISTRIBUTION WIDTH 15.3 % (11.6-17.2); WHITE BLOOD COUNT 18.7 TH/MM3 (4.0-11.0)
[2016-06-28 07:02] LABS: HEMO FLAGS AUTO DIFF; INTERNATIONAL NORMALIZED RATIO 2.1 RATIO; PROTHROMBIN TIME - PATIENT 24.1 SEC (9.8-11.6)
[2016-06-28 07:24] LABS: ALKALINE PHOSPHATASE 161 U/L (45-117); ALT (GPT) 16 U/L (12-78); ANION GAP 9 MEQ/L (5-15); AST (GOT) 32 U/L (15-37); BLOOD UREA NITROGEN 51 MG/DL (7-18); CHLORIDE 103 MEQ/L (98-107); GLOMERULAR FILTRATION RATE 29 ML/MIN (>89); POTASSIUM 4.6 MEQ/L (3.5-5.1); SODIUM (NA) 133 MEQ/L (136-145); TOTAL BILIRUBIN ADULT 4.1 MG/DL (0.2-1.0)
[2016-06-28 08:03] LABS: BANDS 19 % (0-6); EOSINOPHILS 2 % (0-4); POLYS (SEG NEUTROPHILS) 72 % (16-70); WBC DIFF SAMPLE 100
[2016-06-28 08:04] LABS: PLATELET ESTIMATE SMEAR LOW (NORMAL); PLATELET MORPHOLOGY NORMAL (NORMAL); SCAN/DIFF FINAL DIFF MANUAL
[2016-06-28] MEDS: SPIRONOLACTONE 50 MG TAB PO SCH (08:40)
[2016-06-28] MEDS: FUROSEMIDE 20 MG TAB PO SCH (08:41)
[2016-06-28] MEDS: SODIUM CHLORIDE 0.9% FLUSH 10 ML FLUSH IV FLUSH SCH ×2 (08:41→21:28)
[2016-06-28] MEDS: PIPERACIL-TAZO 3.375 GM PREMIX 50 ML IV SCH (08:41)
--- NOTE | 2016-06-28 08:56 | RADRPT ---
EXAM DATE/TIME: 06/28/2016 00:00 COMPARISON: CT ABDOMEN & PELVIS W CONTRAST, June 26, 2016, 14:26. INDICATIONS : Abdominal wall hematoma. FINDINGS/CONCLUSION: The hematoma in the anterior abdominal wall is mostly semi-solid and these d o not respond to catheter drainage. If these do need to be drained, surgical drainage with vigorous aspiration and suction maybe the only way to remove this. Thank you for this consultation. Baljeet Mejia MD FACR on June 28, 2016 at 8:40 Board Certified Radiologist. This report was verified electronically.
[2016-06-28] MEDS: HYDROmorphone HCL PF 1 MG/ML VIAL IV PRN ×3 (09:40→21:27)
--- NOTE | 2016-06-28 09:42 | HHI.PR ---
Subjective Subjective Notes Hungry and painful Objective Vitals/I&O Vital Signs Date Time Temp Pulse Resp B/P Pulse Ox O2 Delivery O2 Flow Rate FiO2 06/28/16 08:00 98.7 103 18 104/49 94 06/27/16 17:37 21 06/26/16 19:09 Room Air Labs Laboratory Tests Test 06/28/16 06:18 White Blood Count 18.7 Red Blood Count 2.15 Hemoglobin 7.6 Hematocrit 22.1 Mean Corpuscular Volume 102.9 Mean Corpuscular Hemoglobin 35.5 Mean Corpuscular Hemoglobin 34.5 Concent Red Cell Distribution Width 15.3 Platelet Count 97 Mean Platelet Volume 7.9 Neutrophils (%) (Auto) 86.1 Lymphocytes (%) (Auto) 5.4 Monocytes (%) (Auto) 7.2 Eosinophils (%) (Auto) 0.9 Basophils (%) (Auto) 0.4 Neutrophils # (Auto) 16.1 Lymphocytes # (Auto) 1.0 Monocytes # (Auto) 1.3 Eosinophils # (Auto) 0.2 Basophils # (Auto) 0.1 CBC Comment AUTO DIFF Differential Total Cells 100 Counted Neutrophils % (Manual) 72 Band Neutrophils % 19 Lymphocytes % 4 Monocytes % 3 Eosinophils % 2 Neutrophils # (Manual) 17.0 Differential Comment FINAL DIFF MANUAL Platelet Estimate LOW Platelet Morphology Comment NORMAL Prothrombin Time 24.1 Prothromb Time International 2.1 Ratio Sodium Level 133 Potassium Level 4.6 Chloride Level 103 Carbon Dioxide Level 21.0 Anion Gap 9 Blood Urea Nitrogen 51 Creatinine 2.39 Estimat Glomerular Filtration 29 Rate Random Glucose 95 Calcium Level 7.5 Total Bilirubin 4.1 Aspartate Amino Transf 32 (AST/SGOT) Alanine Aminotransferase 16 (ALT/SGPT) Alkaline Phosphatase 161 Total Protein 6.6 Albumin 1.3 Date/Time Procedure Status Source Growth 06/26/16 16:41 Aerobic Blood Culture - Preliminary Resulted Blood Peripheral NO GROWTH IN 1 DAY 06/26/16 16:41 Anaerobic Blood Culture - Preliminary Resulted Blood Peripheral NO GROWTH IN 1 DAY 06/26/16 13:07 Urine Culture - Final Complete Urine Clean Catch NO GROWTH IN 48 HOURS. Cardiovascular: Regular Lungs: Clear Abdomen: Other (LEFT abdominal wall hematoma-- tender to palpation ) Extremities: No edema A/P Assessment and Plan 51 year old male with large LEFT abdominal wall hematoma -IR consult for evaluation of possible drainage--Scans reviewed by Dr. Mejia--- feels that hematoma too thick to drain at this point -Continue to correct coagulopathy to prevent further bleeding -INR 2.1; management per Primary Team -Heart healthy diet -GS will follow up Friday; please call over the if any issues -Discussed with Dr. Odell Attending Statement patient seen at bedside still with pain but stable hematoma Attestation The exam, history, and the medical decision-making described in the above note were completed with the assistance of the mid-level provider. I reviewed and agree with the findings presented. I attest that I had a [id number] encounter with the patient on the same day, and personally performed and documented my assessment and findings in the medical record. Najma Garcia Jun 28, 2016 09:42 Sami Segura MD Jul 07, 2016 21:22
--- NOTE | 2016-06-28 10:54 | HHI.PR ---
Subjective Remarks awake and alert minimal abdominal pain no nausea or vomiting no diarrhea voiding Objective Vitals Vital Signs Date Time Temp Pulse Resp B/P Pulse Ox O2 Delivery O2 Flow Rate FiO2 06/28/16 08:00 98.7 103 18 104/49 94 06/28/16 05:25 99.1 102 16 108/52 95 06/28/16 00:00 99.3 105 18 104/54 95 06/27/16 20:00 99.5 101 18 123/59 96 06/27/16 17:37 95 21 06/27/16 16:00 98.7 103 20 122/54 95 06/27/16 12:00 98.6 103 20 111/50 95 I/O 06/27/16 06/27/16 06/27/16 06/28/16 06/28/16 06/28/16 07:00 15:00 23:00 07:00 15:00 23:00 Intake Total 400 ml Output Total 300 ml Balance 100 ml Intake Oral 400 ml Output Urine Total 300 ml # Voids 4 # Bowel Movements 0 0 Result Diagram: 06/28/16 0618 06/28/16 0618 Imaging Last Impressions Consultation 06/28/16 0000 Draft Impressions: Service Date/Time: Tuesday, June 28, 2016 00:00 - CONCLUSION: The hematoma in the anterior abdominal wall is mostly semi-solid and these do not respond to catheter drainage. If these do need to be drained, surgical drainage with vigorous aspiration and suction maybe the only way to remove this. Thank you for this consultation. Baljeet Mejia MD FACR Abdomen/Pelvis CT 06/26/16 1249 Signed Impressions: Service Date/Time: Sunday, June 26, 2016 14:26 - CONCLUSION: 1. 10.1 x 14.5 cm high density mass within the left rectus sheath most consistent with rectus hematoma. 2. Diffuse induration of the subcutaneous soft tissues in the left flank possibly related to asymmetric edema however underlying cellulitis could have this appearance as well. 3. Cirrhotic appearing liver with enlargement of the spleen, varices and ascites. Findings would be consistent with cirrhosis and portal hypertension. Christian Mejia MD Objective Remarks awake and alert, NAD, no encephalopathy mild icteresia no throat exudates lungs no rales or wheezes regular rhythm abdomen- distended, + firmness on left abdominal area, softer compared to eystarday's exam, less tender less tender c/w yesterday's exam, + bowel sounds abdominal wall erythema- resolved extremities + edema neuro exam- non focal A/P Assessment and Plan A/P 51 years old male Sepsis secondary ? Infected Spontaneous rectus sheath hematoma Abdominal wall cellulitis- improved Leukocytosis- persists. can be reactive Large ventral hernia REctus Sheath Hematoma- seen by IR-06/28 hematoma too indurated to aspirate GS ff- monitor Continue IV zosyn for now . - .ID consult for recommendation persistent leukocytosis, ? need Acute anemia on top of chronic- drop in Hgb give 1 unit RBC with abdominal hematoma. 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 CBC in am PT consult in am Janeth Odell MD Jun 28, 2016 10:54
[2016-06-28] MEDS: SODIUM CHLOR 0.9% 1000 ML INJ 1,000 ML IV SCH (11:00)
--- NOTE | 2016-06-28 13:03 | PD.CONS ---
History of Present Illness Service Infectious disease Consult Requested By Dr Kiana Odell Reason for Consult Evaluate patient with persistent leukocytosis, has abdominal wall hematoma Primary Care Physician Non-Staff Diagnoses: History of Present Illness Patient seen and examined. Records reviewed. Patient is a 51-year-old male, presented to the hospital for further evaluation of worsening abdominal pain. Patient apparently has had swelling on the left side of his abdomen since February. He has been to his primary care physician as well as [place] he was told that it was consistent with a hernia. His pain was being managed, but over the last month it started getting worse. The last week the pain was so severe so he presented to the hospital for further evaluation and treatment. He denies any history of any trauma or being hit. There's been no nausea or vomiting. No fever or chills. Since admission his evaluation has revealed a left rectus muscle hematoma. He has not been febrile. His white count has been elevated he was 20,000 when he came in, and it's down to 18,000. His hemoglobin has been decreasing and is down to 7.2, it was 10 when he came in. He has coagulopathy. Patient has known liver cirrhosis. He denies any urinary complaint, and his urinalysis is normal. Patient's creatinine also has been increasing. Patient has been on Vanco and Zosyn, vancomycin has been discontinued. Had diarrhea 2 days ago, no BM yesterday, one BM early am and none since. Infectious disease consultation is requested to evaluate for persistent leukocytosis. Review of Systems Constitutional: DENIES: Fever, Chills Eyes: DENIES: Eye pain Ears, nose, mouth, throat: DENIES: Nasal discharge, Oral lesions, Throat pain, Sinus Pain Respiratory: DENIES: Cough, Shortness of breath Cardiovascular: DENIES: Chest pain, Palpitations Gastrointestinal: COMPLAINS OF: Abdominal pain, Diarrhea, DENIES: Nausea, Vomiting, Difficulty Swallowing Genitourinary: DENIES: Urgency, Hematuria, Dysuria Musculoskeletal: DENIES: Joint pain Integumentary: DENIES: Rash Neurologic: DENIES: Headache Psychiatric: COMPLAINS OF: Anxiety, DENIES: Hallucinations Past Family Social History Allergies: Coded Allergies: Morphine (Verified Adverse Reaction, Intermediate, Nausea/Vomiting, 06/26/16 ) *MDRO Multi-Drug Resistant Organism (Verified Adverse Reaction, Unknown, ) MRSA (arm wound) - 08/2008 Past Medical History Cirrhosis Hepatitis C S/P treatment History of diabetes mellitus, states it is well controlled and he has low glucose Past Surgical History Tib-fib surgery 2 on both legs Active Ordered Medications Dilaudid Zofran Oxycodone Zosyn Aldactone Was on IV Vanco previously Social History 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 History of alcohol abuse, states he quit several years ago History of drug use, states he quit narcotics years ago, still occasionally uses marijuana Quit smoking tobacco 10 years ago Physical Exam Vital Signs Vital Signs Date Time Temp Pulse Resp B/P Pulse Ox O2 Delivery O2 Flow Rate FiO2 06/28/16 08:00 98.7 103 18 104/49 94 06/28/16 05:25 99.1 102 16 108/52 95 06/28/16 00:00 99.3 105 18 104/54 95 06/27/16 20:00 99.5 101 18 123/59 96 06/27/16 17:37 95 21 06/27/16 16:00 98.7 103 20 122/54 95 Physical Exam GENERAL: This is a well-nourished, well-developed male, awake and alert, in no apparent distress. SKIN: Cool and dry. No generalized rash, no ecchymosis. HEAD: Atraumatic. Normocephalic. No temporal or scalp tenderness. EYES: [place] conjunctivae. Pupils equal round and reactive. Extraocular motions intact. Has scleral icterus. No injection or drainage. ENT: Nose without bleeding, or purulent drainage. Moist oral mucosa. Throat without erythema, or exudate. Uvula midline. NECK: Trachea midline. No JVD or lymphadenopathy. Supple, nontender, no meningeal signs. CARDIOVASCULAR: Regular rate and rhythm without murmurs, gallops, or rubs. RESPIRATORY: Clear to auscultation. Breath sounds equal bilaterally. No wheezes , rales, or rhonchi. GASTROINTESTINAL: Abdomen globular, distended, has diffuse abdominal tenderness. There is a firm mass on L side that is about 12 inch diameter, no redness, not fluctuant, not tender. Bowel sounds are present and normoactive. No guarding. No rebound. MUSCULOSKELETAL: Extremities without clubbing, cyanosis. Has edema both LE, and pitting at both feet. No calf tenderness. Negative Homans sign bilaterally. NEUROLOGICAL: Awake and alert. Cranial nerves II through XII intact. Motor and sensory grossly within normal limits. Normal speech. PSYCH: Normal affect, calm and cooperative LINE: PIV with no evidence of infection Laboratory Laboratory Tests Test 06/28/16 06/28/16 06:18 10:29 White Blood Count 18.7 Red Blood Count 2.15 Hemoglobin 7.6 Hematocrit 22.1 Mean Corpuscular Volume 102.9 Mean Corpuscular Hemoglobin 35.5 Mean Corpuscular Hemoglobin 34.5 Concent Red Cell Distribution Width 15.3 Platelet Count 97 Mean Platelet Volume 7.9 Neutrophils (%) (Auto) 86.1 Lymphocytes (%) (Auto) 5.4 Monocytes (%) (Auto) 7.2 Eosinophils (%) (Auto) 0.9 Basophils (%) (Auto) 0.4 Neutrophils # (Auto) 16.1 Lymphocytes # (Auto) 1.0 Monocytes # (Auto) 1.3 Eosinophils # (Auto) 0.2 Basophils # (Auto) 0.1 CBC Comment AUTO DIFF Differential Total Cells 100 Counted Neutrophils % (Manual) 72 Band Neutrophils % 19 Lymphocytes % 4 Monocytes % 3 Eosinophils % 2 Neutrophils # (Manual) 17.0 Differential Comment FINAL DIFF MANUAL Platelet Estimate LOW Platelet Morphology Comment NORMAL Prothrombin Time 24.1 Prothromb Time International 2.1 Ratio Sodium Level 133 Potassium Level 4.6 Chloride Level 103 Carbon Dioxide Level 21.0 Anion Gap 9 Blood Urea Nitrogen 51 Creatinine 2.39 Estimat Glomerular Filtration 29 Rate Random Glucose 95 Calcium Level 7.5 Total Bilirubin 4.1 Aspartate Amino Transf 32 (AST/SGOT) Alanine Aminotransferase 16 (ALT/SGPT) Alkaline Phosphatase 161 Total Protein 6.6 Albumin 1.3 Blood Bank Comment Date/Time Procedure Status Source Growth 06/26/16 16:41 Aerobic Blood Culture - Preliminary Resulted Blood Peripheral NO GROWTH IN 2 DAYS 06/26/16 16:41 Anaerobic Blood Culture - Preliminary Resulted Blood Peripheral NO GROWTH IN 2 DAYS 06/26/16 13:07 Urine Culture - Final Complete Urine Clean Catch NO GROWTH IN 48 HOURS. Result Diagram: 06/28/16 0618 06/28/16 0618 Imaging RADIOLOGY STUDIES/FILMS REVIEWED Consultation 06/28/16 0000 Signed Impressions: Service Date/Time: Tuesday, June 28, 2016 00:00 - CONCLUSION: The hematoma in the anterior abdominal wall is mostly semi-solid and these do not respond to catheter drainage. If these do need to be drained, surgical drainage with vigorous aspiration and suction maybe the only way to remove this. Thank you for this consultation. Baljeet Mejia MD FACR Abdomen/Pelvis CT 06/26/16 1249 Signed Impressions: Service Date/Time: Sunday, June 26, 2016 14:26 - CONCLUSION: 1. 10.1 x 14.5 cm high density mass within the left rectus sheath most consistent with rectus hematoma. 2. Diffuse induration of the subcutaneous soft tissues in the left flank possibly related to asymmetric edema however underlying cellulitis could have this appearance as well. 3. Cirrhotic appearing liver with enlargement of the spleen, varices and ascites. Findings would be consistent with cirrhosis and portal hypertension. Christian Mejia MD Assessment and Plan Assessment and Plan IMPRESSION Persistent leukocytosis, likely reactive due to blood loss resulting in L abdominal wall hematoma - ?still bleeding, his Hgb is still trending down - has coagulopathy - no evidence of infection in hematoma based on exam and on imaging study Abdominal wall hematoma Liver cirhosis Hx ETOh abuse and Hep C Hep C S/P Rx Renal insufficiency, worsening RECOMMENDATION Stop Abx Follow CBC - WBC and Hgb Check C diff if diarrhea persist, most likely due to meds; has not had significant BM last 2 days Renal evaluation Monitor progress Will determine any need for further Abx depending in his progress Thank you for this consultation Discussed Condition With D/W RN Explained plan to patient Suzanne Katz MD Jun 28, 2016 13:03
--- NOTE | 2016-06-28 13:45 | EKG ---
Date Performed: 06/27/2016 Time Performed: 17:21:10 PTAGE: 51 years EKG: SINUS TACHYCARDIA NONSPECIFIC T-WAVE ABNORMALITY ABNORMAL RHYTHM ECG Compared to prior trac ing no significant change PREVIOUS TRACING : 06/09/2015 16.09 DOCTOR: Gaudencio Plasencia Interpretating Date/Time 06/28/2016 13:39:54
--- NOTE | 2016-06-28 20:11 | MB ---
cc: FRANKIE BECKWITH MD DATE OF CONSULTATION: 06/28/2016. REASON FOR CONSULTATION: Elevated BUN and creatinine for evaluation. HISTORY OF PRESENT ILLNESS: This is 51-year-old male with past medical history of diabetes mellitus which is longstanding, history of cirrhosis of the liver with alcoholism and hepatitis C, history of acute kidney injury in the past who came to the hospital because of abdominal wall hematoma and coagulopathy. I was called to see the patient because of elevated BUN and creatinine. His creatinine on admission was 1.6 and has gone up to 2.3. Previously he had a creatinine of 1.1-1.2. This has been going on for the last one year or so. He has had history of acute kidney injury in 2012 and he was in the hospital and the creatinine went up to as high as 9.7 but it improved. The patient has not been following with any pediatric dentist. He came in here with an abdominal wall hematoma and his INR was 1.9 on admission. It has been in the same range and now it is 2.1. The patient was supposed to go for the surgery today but it was cancelled because of the elevated INR. The patient was seen by the infectious disease also and they have recommended checking C. Difficile as he has persistent diarrhea. He has leukocytosis with a WBC count of 20,000 on admission which has is now 18.7. He is currently getting normal saline at 50 an hour. The patient was on Lasix which has been stopped and he was on Zosyn which has also been stopped. The patient noticed he has decreased urine output. He denies any dysuria, hematuria, no difficulty in passing urine. He has been n.p.o. as he was supposed to go for the surgery but denies any nausea or vomiting. There is no history of diarrhea. He has abdominal pain at the site of the hematoma. He denies taking any nonsteroidal anti-inflammatory drugs at home. PAST MEDICAL HISTORY: 1. History of acute kidney injury in the past with chronic kidney disease. 2. Diabetes mellitus. 3. Hypertension. 4. Chronic liver disease. 5. History of alcoholism. 6. Hepatitis C. PAST SURGICAL HISTORY: History of tibiofibular surgery. REVIEW OF SYSTEMS: The patient has generalized weakness, feeling tired. Denies any shortness of breath. No chest pain. No palpitation. No history of fever. No headache or dizziness. No nausea or vomiting. He has this abdominal pain at the site of the hematoma. No history of diarrhea. No dysuria or hematuria. SOCIAL HISTORY: He has a past history of smoking and alcoholism. He stopped smoking ten years ago and then stopped drinking alcohol almost ten years ago. Also he has also history of using narcotics which he also stopped. FAMILY HISTORY: The family history is noncontributory. ALLERGIES: Allergic to morphine. MEDICATIONS: Currently he is on: 1. Normal saline at 50/hour. 2. Zofran as needed. 3. Dilaudid as needed. 4. Oxycodone as needed. PHYSICAL EXAMINATION: GENERAL: On examination, the patient is awake and alert and he is not in acute distress. VITAL SIGNS: His last blood pressure was 117/54, temperature is 98, oxygen saturation is 94% to 95%. His blood pressure has been in the range of 100 to 110 systolic most of the time with one reading of 98/52. Temperature is 98. Oxygen saturation is stable. HEAD, EYES, EARS, NOSE, THROAT: The pupils are equal and reacting to light. Nonicteric sclerae. Conjunctivae are pale. NECK: The neck is supple. JVD is not elevated. LUNGS: The patient has bilateral decreased air entry with occasional wheezing. HEART: S1 and S2 regular rhythm. ABDOMEN: Abdomen is distended, soft and lax. There is a hematoma with bulging on the left side of the umbilicus with some tenderness. There is no redness or skin color changes. EXTREMITIES: He has a right below-knee amputation. He has mild edema. INVESTIGATIONS: White blood cell count is 18.7, hemoglobin 7.6, platelet count of 97,000, neutrophils 86.1%. Sodium 133, potassium 4.6, chloride 103, bicarbonate 21, BUN 51, creatinine 2.39, calcium is 7.5. AST 32, ALT 16, alkaline phosphatase 161. Saturation is 61.0%. Total protein is 6.6 with albumin of 1.3. Vitamin B12 is greater than 2000. Folic acid is 9.5. INR is 2.1. The urinalysis is showing trace protein. Large leukocyte esterase. WBCs 91. Blood cultures and urine cultures showing no growth. IMAGING STUDIES: The patient had CT scan of the abdomen and pelvis done two days ago with IV contrast that showed a 10 x 14.5 cm density mass in the left rectus sheath most consistent with a rectus hematoma and diffuse induration also of subcutaneous tissue, cirrhosis in the liver. The kidneys are mentioned within normal limits. ASSESSMENT AND PLAN: 1. Chronic kidney disease with acute kidney injury. 2. Abdominal hematoma. 3. Liver cirrhosis with coagulopathy. 4. Leukocytosis. 5. Anemia. 6. History of alcoholism and hepatitis C. The patient has high BUN and creatinine and he has minimal to no proteinuria. Most likely he has acute kidney injury because of either acute tubular necrosis or the possibility of over-diuresis. He was on Lasix and Spironolactone and both are being held now and he was started on gentle IV hydration. I will check the urine sodium and osmolality. The other differential for acute kidney injury will be contrast-related injury because he had a CT scan with IV contrast. At present, agree with continuing with gentle hydration and holding the diuretics and following the urine output and the BUN and creatinine. He has some underlying kidney disease with a creatinine of around 1.2 to 1.3. This could be related to hypertensive or renovascular disease. Thank you for the consultation, and the patient will be followed by Dr. Puneet Cordero over the weekend. MD LIBRADO Yeboah/LENORA /3:45 PM /7:56 PM
[2016-06-28] MEDS: SODIUM CHLORIDE 0.9% FLUSH 10 ML FLUSH IV FLUSH PRN (22:33)
[2016-06-29] VITALS: BP 130/56; PULSE 107; RESP 18; TEMP 97.6; O2SAT 96
[2016-06-29] MEDS: HYDROmorphone HCL PF 1 MG/ML VIAL IV PRN ×5 (00:41→21:44)
[2016-06-29] MEDS: SODIUM CHLORIDE 0.9% FLUSH 10 ML FLUSH IV FLUSH PRN ×2 (00:41→06:06)
[2016-06-29 04:00] VITALS: BP 127/60; PULSE 109; RESP 18; TEMP 97.3; O2SAT 96
[2016-06-29] MEDS: SODIUM CHLOR 0.9% 1000 ML INJ 1,000 ML IV SCH ×2 (07:00→18:42)
[2016-06-29 08:00] VITALS: BP 104/53; PULSE 109; RESP 18; TEMP 99.5; O2SAT 95
[2016-06-29 08:02] LABS: BICARBONATE 21.4 MEQ/L (21.0-32.0); POTASSIUM 4.7 MEQ/L (3.5-5.1)
[2016-06-29] MEDS: SODIUM CHLORIDE 0.9% FLUSH 10 ML FLUSH IV FLUSH SCH ×2 (08:40→21:44)
[2016-06-29 11:33] LABS: REVIEW FLAG FINAL
[2016-06-29 12:00] VITALS: BP 98/58; PULSE 103; RESP 18; TEMP 98.9; O2SAT 92
--- NOTE | 2016-06-29 14:13 | HHI.NPPN ---
Subjective Additional Remarks No acute complaints, reports some loose stools Objective Data Data 06/28/16 06/29/16 19:00 07:00 Intake Total 480 ml Output Total 320 ml Balance 160 ml Intake Oral 480 ml Output Urine Total 320 ml # Voids 4 4 # Bowel Movements 0 Vital Signs Date Time Temp Pulse Resp B/P Pulse Ox O2 Delivery O2 Flow Rate FiO2 06/29/16 12:00 98.9 103 18 98/58 92 06/29/16 08:00 99.5 109 18 104/53 95 06/29/16 04:00 97.3 109 18 127/60 96 06/29/16 00:00 97.6 107 18 130/56 96 06/28/16 21:30 98.4 95 20 116/62 99 06/28/16 20:00 98.4 97 20 116/60 98 06/28/16 20:00 98.8 98 18 115/60 98 06/28/16 19:45 98.3 95 20 118/65 99 06/28/16 19:30 98.4 95 21 115/65 99 06/28/16 19:15 98.3 95 20 119/65 99 06/28/16 19:00 98.4 97 20 115/60 98 06/28/16 18:50 97.2 98 20 107/55 99 06/28/16 16:00 97.8 98 20 98/56 98 -: 06/29/16 1117 06/29/16 0654 Physical Exam General Appearance: Well Developed, Well Nourished, No Acute Distress Throat Throat Exam: Oral Mucosa [place] & Moist Neck Neck Exam: Neck Supple Pulmonary Resp Exam: Diminished Breath Sounds Cardiology CV Exam: Regular Gastrointestinal/Abdomen GI Exam: Soft, Distended Assessment/Plan Problem List: (1) GILA (acute kidney injury) Plan: He has some underlying kidney disease with a creatinine of around 1.2 to 1.3. This could be related to hypertensive or renovascular disease. Previous history of GILA and dialysis with hepatorenal syndrome. GILA potentially due to volume depletion, versus contrast induced GILA with recent CT scan. History of cirrhosis - He was on Lasix and Spironolactone and both are being held now On NS at 100cc/hour. Continue for now and closely monitor volume status. Recent loose stools may also be contributing to mild volume depletion. Urine Na <5 - suggesting hepatorenal syndrome vs pre-renal GILA. (2) Abdominal wall hematoma Plan: Follow with general surgery (3) Liver cirrhosis Plan: diuretics on hold - closely monitor. (4) Hepatitis C (5) Alcohol abuse Plan ASSESSMENT AND PLAN: 1. Chronic kidney disease with acute kidney injury. 2. Abdominal hematoma. 3. Liver cirrhosis with coagulopathy. 4. Leukocytosis. 5. Anemia. 6. History of alcoholism and hepatitis C. The patient has high BUN and creatinine and he has minimal to no proteinuria. Most likely he has acute kidney injury because of either acute tubular necrosis or the possibility of over-diuresis. He was on Lasix and Spironolactone and both are being held now and he was started on gentle IV hydration. I will check the urine sodium and osmolality. The other differential for acute kidney injury will be contrast-related injury because he had a CT scan with IV contrast. At present, agree with continuing with gentle hydration and holding the diuretics and following the urine output and the BUN and creatinine. He has some underlying kidney disease with a creatinine of around 1.2 to 1.3. This could be related to hypertensive or renovascular disease. Thank you for the consultation, and the patient will be followed by Dr. Puneet Cordero over the weekend. Problem Qualifiers (1) Abdominal wall hematoma: Qualified Code: S30.1XXA - Abdominal wall hematoma, initial encounter (2) Liver cirrhosis: Qualified Code: K70.30 - Alcoholic cirrhosis of liver without ascites Christian Cordero MD Jun 29, 2016 14:13
[2016-06-29 16:00] VITALS: BP 109/56; PULSE 101; RESP 17; TEMP 98.8; O2SAT 96
--- NOTE | 2016-06-29 17:46 | HHI.PR ---
Subjective Remarks Pain controlled. Transfussed 1 unit PRBC yesterday and 4 units FFP. INR is elevated at 2.1 (related to coagulopathy from cirrhosis). Hgb is 8.4 today. No new complaints from patient. Objective Vital Signs Date Time Temp Pulse Resp B/P Pulse Ox O2 Delivery O2 Flow Rate FiO2 06/29/16 16:00 98.8 101 17 109/56 96 06/29/16 12:00 98.9 103 18 98/58 92 06/29/16 08:00 99.5 109 18 104/53 95 06/29/16 04:00 97.3 109 18 127/60 96 06/29/16 00:00 97.6 107 18 130/56 96 06/28/16 21:30 98.4 95 20 116/62 99 06/28/16 20:00 98.4 97 20 116/60 98 06/28/16 20:00 98.8 98 18 115/60 98 06/28/16 19:45 98.3 95 20 118/65 99 06/28/16 19:30 98.4 95 21 115/65 99 06/28/16 19:15 98.3 95 20 119/65 99 06/28/16 19:00 98.4 97 20 115/60 98 06/28/16 18:50 97.2 98 20 107/55 99 I/O 06/28/16 06/28/16 06/28/16 06/29/16 06/29/16 06/29/16 07:00 15:00 23:00 07:00 15:00 23:00 Intake Total 480 ml 2099 ml Output Total 200 ml 120 ml Balance 280 ml -120 ml 2099 ml Intake Oral 480 ml IV Total 2099 ml Output Urine Total 200 ml 120 ml # Voids 4 4 # Bowel Movements 0 Result Diagram: 06/29/16 1117 06/29/16 0654 Imaging Last Impressions Consultation 06/28/16 0000 Signed Impressions: Service Date/Time: Tuesday, June 28, 2016 00:00 - CONCLUSION: The hematoma in the anterior abdominal wall is mostly semi-solid and these do not respond to catheter drainage. If these do need to be drained, surgical drainage with vigorous aspiration and suction maybe the only way to remove this. Thank you for this consultation. Baljeet Mejia MD FACR Abdomen/Pelvis CT 06/26/16 1249 Signed Impressions: Service Date/Time: Sunday, June 26, 2016 14:26 - CONCLUSION: 1. 10.1 x 14.5 cm high density mass within the left rectus sheath most consistent with rectus hematoma. 2. Diffuse induration of the subcutaneous soft tissues in the left flank possibly related to asymmetric edema however underlying cellulitis could have this appearance as well. 3. Cirrhotic appearing liver with enlargement of the spleen, varices and ascites. Findings would be consistent with cirrhosis and portal hypertension. Christian Mejia MD Objective Remarks GENERAL: NAD, AOx3 SKIN: Warm and dry. HEAD: Atraumatic. Normocephalic. EYES: Pupils equal and round. No scleral icterus. No injection or drainage. ENT: No nasal bleeding or discharge. Mucous membranes pink and moist. NECK: Trachea midline. No JVD. CARDIOVASCULAR: Regular rate and rhythm. RESPIRATORY: No accessory muscle use. Clear to auscultation. Breath sounds equal bilaterally. GASTROINTESTINAL: Abdomen soft, non-tender. Hepatic and splenic margins not palpable. Obese abdomen, left sided anterior hematoma (visible) at abdominal wall MUSCULOSKELETAL: Extremities without clubbing, cyanosis, or edema. No obvious deformities. NEUROLOGICAL: Awake and alert. No obvious cranial nerve deficits. Motor grossly within normal limits. Five out of 5 muscle strength in the arms and legs. Normal speech. PSYCHIATRIC: Appropriate mood and affect; insight and judgment normal. Medications and IVs Current Medications Ondansetron HCl (Zofran Inj) 4 mg ONCE ONCE IVP Last administered on 06/26/16 13:00; Start 06/26/16 at 13:00; Stop 06/26/16 at 13:01; Status DC Pantoprazole Sodium 40 mg 40 mg ONCE ONCE IVP Last administered on 06/26/16 13 :00; Start 06/26/16 at 13:00; Stop 06/26/16 at 13:01; Status DC Sodium Chloride (NS 1000 ml Inj) 1,000 ml @ 125 mls/hr Q8H IV Last administered on 06/26/16 12:49; Start 06/26/16 at 12:49; Stop 06/26/16 at 20:48; Status DC Hydromorphone HCl (Dilaudid Pf Inj) 1 mg ONCE ONCE IVS Last administered on 13:00; Start 06/26/16 at 13:00; Stop 06/26/16 at 13:01; Status DC Iohexol 46 ml 46 ml STK-MED ONCE IV Last administered on 06/26/16 14:47; Start 06/26/16 at 14:47; Stop 06/26/16 at 14:48; Status DC Sodium Chloride 250 ml @ 15 mls/hr ONCE ONCE IV Last administered on 18:37; Start 06/26/16 at 16:00; Stop 06/27/16 at 08:39; Status DC Sodium Chloride 1,000 ml @ 70 mls/hr [id number] IV Last administered on 06/26/16 16:15; Start 06/26/16 at 16:15; Stop 06/26/16 at 17:14; Status DC Piperacillin Sod/ Tazobactam Sod 50 ml @ 100 mls/hr ONCE ONCE IV Last administered on 06/26/16 16:30; Start 06/26/16 at 16:30; Stop 06/26/16 at 16:59; Status DC Vancomycin HCl/ Sodium Chloride (Vancomycin Inj/ NS 250 ml Inj) 250 ml @ 250 mls/hr ONCE ONCE IV Last administered on 06/26/16 17:34; Start 06/26/16 at 16: 30; Stop 06/26/16 at 17:33; Status DC Spironolactone (Aldactone) 50 mg BID PO Last administered on 06/28/16 08:40; Start 06/26/16 at 21:00; Status Hold Furosemide (Lasix) 40 mg BID@09,18 PO Last administered on 06/27/16 09:06; Start 06/26/16 at 18:00; Stop 06/27/16 at 13:57; Status DC Lactulose (Lactulose Liq) 30 ml BID PO Last administered on 06/27/16 09:06; Start 06/26/16 at 21:00; Status Hold Sodium Chloride (NS Flush) 2 ml UNSCH PRN IV FLUSH FLUSH AFTER USING IV ACCESS Last administered on 06/29/16 06:06; Start 06/26/16 at 17:15 Sodium Chloride (NS Flush) 2 ml BID IV FLUSH Last administered on 06/29/16 08: 40; Start 06/26/16 at 21:00 Ondansetron HCl (Zofran Inj) 4 mg Q6H PRN IVP NAUSEA OR VOMITING Last administered on 06/27/16 12:12; Start 06/26/16 at 17:15 Hydromorphone HCl (Dilaudid Pf Inj) 1 mg Q3H PRN IV BREAKTHROUGH PAIN Last administered on 06/29/16 16:21; Start 06/26/16 at 17:15 Oxycodone HCl (Roxicodone) 5 mg Q4H PRN PO PAIN SCALE 6-10 Last administered on 06/29/16 14:23; Start 06/26/16 at 17:15 Naloxone HCl 0.4 mg 0.4 mg UNSCH PRN IV SEE LABEL COMMENTS; Start 06/26/16 at 17 :15 Pharmacy Profile Note 0 ml @ 0 mls/hr UNSCH OTHER ; Start 06/26/16 at 17:30; Status Cancel Piperacillin Sod/ Tazobactam Sod 50 ml @ 100 mls/hr Q8H IV Last administered on 06/28/16 08:41; Start 06/27/16 at 00:00; Stop 06/28/16 at 13:16; Status DC Vancomycin HCl 1500 mg/Sodium Chloride 515 ml @ 250 mls/hr ONCE ONCE IV Last administered on 06/26/16 19:09; Start 06/26/16 at 18:45; Stop 06/26/16 at 20:48; Status DC Vancomycin HCl/ Sodium Chloride (Vancomycin Inj/ NS 250 ml Inj) 262 ml @ 250 mls/hr Q12H IV Last administered on 06/27/16 09:18; Start 06/27/16 at 08:00; Stop 06/27/16 at 14:00; Status DC Miscellaneous Information SPECIFIC LAB TO BE ARTUR... 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
[2016-06-29 20:00] VITALS: BP 118/58; PULSE 104; RESP 20; TEMP 99.2; O2SAT 98
[2016-06-30] VITALS: BP 116/57; PULSE 89; RESP 20; TEMP 98.6; O2SAT 97
[2016-06-30] MEDS: HYDROmorphone HCL PF 1 MG/ML VIAL IV PRN ×3 (03:18→21:53)
[2016-06-30] MEDS: SODIUM CHLOR 0.9% 1000 ML INJ 1,000 ML IV SCH (05:25)
[2016-06-30 08:00] VITALS: BP 89/42; PULSE 107; RESP 20; TEMP 97.4; O2SAT 95
[2016-06-30 08:23] LABS: AUTOMATED NEUTROPHIL # 17.9 TH/MM3 (1.8-7.7); BASOPHIL # 0.1 TH/MM3 (0-0.2); BASOPHIL % 0.5 % (0.0-2.0); EOSINOPHIL # 0.2 TH/MM3 (0-0.4); EOSINOPHIL % 1.2 % (0.0-4.0); HEMO FLAGS DIFF FINAL; LYMPH % 4.2 % (9.0-44.0); LYMPHOCYTE # 0.9 TH/MM3 (1.0-4.8); MEAN CELL VOLUME 102.4 FL (80.0-100.0); MEAN CORPUSCULAR HEMOGLOBIN 34.9 PG (27.0-34.0); MEAN CORPUSCULAR HGB CONC 34.1 % (32.0-36.0); MONO % 7.5 % (0.0-8.0); NEUT % 86.6 % (16.0-70.0); PLATELET COUNT 101 TH/MM3 (150-450); RED BLOOD COUNT 2.35 MIL/MM3 (4.50-5.90); WHITE BLOOD COUNT 20.6 TH/MM3 (4.0-11.0)
[2016-06-30 08:51] LABS: ALKALINE PHOSPHATASE 126 U/L (45-117); ALT (GPT) 17 U/L (12-78); ANION GAP 11 MEQ/L (5-15); AST (GOT) 31 U/L (15-37); BICARBONATE 18.8 MEQ/L (21.0-32.0); BLOOD UREA NITROGEN 57 MG/DL (7-18); CHLORIDE 103 MEQ/L (98-107); GLOMERULAR FILTRATION RATE 20 ML/MIN (>89); SODIUM (NA) 133 MEQ/L (136-145); TOTAL BILIRUBIN ADULT 4.8 MG/DL (0.2-1.0)
[2016-06-30] MEDS: SODIUM CHLORIDE 0.9% FLUSH 10 ML FLUSH IV FLUSH SCH ×2 (09:00→21:00)
[2016-06-30 10:19] LABS: APTT (PATIENT) 56.9 SEC (24.3-30.1); PROTHROMBIN TIME - PATIENT 22.2 SEC (9.8-11.6)
[2016-06-30] MEDS: PSYLLIUM FIBER SF/GF 6 GM POWD PKT PO SCH ×2 (11:45→21:53)
[2016-06-30] MEDS ORDERED: DOCUSATE SODIUM 100 MG CAP PO PRN (11:45)
--- NOTE | 2016-06-30 11:53 | HHI.PR ---
Subjective Remarks Pain controlled. No need for transfusion today, thus far. INR is elevated at 2.0 (related to coagulopathy from cirrhosis). FFP has done nothing to improve INR, but his bleeding seems to be stopping for now. Hgb is 8.2 today. Report of constipation by the patient. Objective Vital Signs Date Time Temp Pulse Resp B/P Pulse Ox O2 Delivery O2 Flow Rate FiO2 06/30/16 08:00 97.4 107 20 89/42 95 06/30/16 00:00 98.6 89 20 116/57 97 06/29/16 20:00 99.2 104 20 118/58 98 06/29/16 16:00 98.8 101 17 109/56 96 06/29/16 12:00 98.9 103 18 98/58 92 I/O 06/29/16 06/29/16 06/29/16 06/30/16 06/30/16 06/30/16 07:00 15:00 23:00 07:00 15:00 23:00 Intake Total 2099 ml Balance 2099 ml IV Total 2099 ml # Voids 4 2 # Bowel Movements 3 Result Diagram: 06/30/16 0646 06/30/16 0646 Objective Remarks GENERAL: NAD, AOx3 SKIN: Warm and dry. HEAD: Atraumatic. Normocephalic. EYES: Pupils equal and round. No scleral icterus. No injection or drainage. ENT: No nasal bleeding or discharge. Mucous membranes pink and moist. NECK: Trachea midline. No JVD. CARDIOVASCULAR: Regular rate and rhythm. RESPIRATORY: No accessory muscle use. Clear to auscultation. Breath sounds equal bilaterally. GASTROINTESTINAL: Abdomen soft, non-tender. Hepatic and splenic margins not palpable. Obese abdomen, left sided anterior hematoma (visible) at abdominal wall MUSCULOSKELETAL: Extremities without clubbing, cyanosis, or edema. No obvious deformities. NEUROLOGICAL: Awake and alert. No obvious cranial nerve deficits. Motor grossly within normal limits. Five out of 5 muscle strength in the arms and legs. Normal speech. PSYCHIATRIC: Appropriate mood and affect; insight and judgment normal. Medications and IVs Administered Medications Medications (Trade) Dose Ordered Sig/Srnii Route PRN Reason Start Time Stop Time Status Last Admin Dose Admin Spironolactone (Aldactone) 50 mg BID PO 06/26/16 21:00 Hold 06/28/16 08:40 Lactulose (Lactulose Liq) 30 ml BID PO 06/26/16 21:00 Hold 06/27/16 09:06 Sodium Chloride (NS Flush) 2 ml UNSCH PRN IV FLUSH FLUSH AFTER USING IV ACCESS 06/26/16 17:15 06/29/16 06:06 Sodium Chloride (NS Flush) 2 ml BID IV FLUSH 06/26/16 21:00 06/29/16 21:44 Ondansetron HCl (Zofran Inj) 4 mg Q6H PRN IVP NAUSEA OR VOMITING 06/26/16 17:15 06/27/16 12:12 Hydromorphone HCl (Dilaudid Pf Inj) 1 mg Q3H PRN IV BREAKTHROUGH PAIN 06/26/16 17:15 06/30/16 03:18 Oxycodone HCl 5 mg 5 mg Q4H PRN PO PAIN SCALE 6-10 06/26/16 17:15 06/30/16 05:24 Sodium Chloride (NS 1000 ml Inj) 1,000 ml @ 100 mls/hr Q10H IV 06/28/16 11:00 06/30/16 05:25 A/P Problem List: (1) GILA (acute kidney injury) ICD Code: N17.9 (2) Abdominal wall hematoma ICD Code: S30.1XXA (3) Liver cirrhosis ICD Code: K74.60 (4) Coagulopathy ICD Code: D68.9 Assessment and Plan A/P Rectus Sheath Hematoma (spontaneous) Acute Blood Loss Anemia Coagulopathy secondary to Cirrhosis Coagulopathy and Anemia/Bleed are more stable compared to previously. Transfuse Blood and/or FFP as needed Follow H/H Follow INR PRN pain treatments Abdominal Wall Cellulitis Leukocytosis Improving No change to antibiotics (zosyn) Follow vitals Signs of improvement in infection GILA Worsened today Etiology for the elevated creatinine may be related to bleed/hematoma and associated tissue insult as well as presenting infection with cellulitic tissue , inflammation. Follow renal function IV Hydration Nephrology following Problem Qualifiers (1) Abdominal wall hematoma: Qualified Code: S30.1XXA - Abdominal wall hematoma, initial encounter (2) Liver cirrhosis: Qualified Code: K70.30 - Alcoholic cirrhosis of liver without ascites Christian Billingsley MD Jun 30, 2016 11:53 am
[2016-06-30 12:00] VITALS: BP 99/49; PULSE 97; RESP 20; TEMP 97.8; O2SAT 95
--- NOTE | 2016-06-30 13:17 | HHI.NPPN ---
Subjective Additional Remarks Feels somewhat better today, good appetite reported. Objective Data Data 06/29/16 06/30/16 19:00 07:00 Intake Total 2099 ml Balance 2099 ml IV Total 2099 ml # Voids 2 # Bowel Movements 3 Vital Signs Date Time Temp Pulse Resp B/P Pulse Ox O2 Delivery O2 Flow Rate FiO2 06/30/16 08:00 97.4 107 20 89/42 95 06/30/16 00:00 98.6 89 20 116/57 97 06/29/16 20:00 99.2 104 20 118/58 98 06/29/16 16:00 98.8 101 17 109/56 96 -: 06/30/16 0646 06/30/16 0646 Physical Exam General Appearance: Well Developed, Well Nourished, No Acute Distress Throat Throat Exam: Oral Mucosa [place] & Moist Neck Neck Exam: Neck Supple Pulmonary Resp Exam: Diminished Breath Sounds Cardiology CV Exam: Regular Gastrointestinal/Abdomen GI Exam: Soft, Distended Integumentary Skin Exam: Dry, Intact Extremeties Extremities Exam: Pitting Edema Assessment/Plan Problem List: (1) GILA (acute kidney injury) Plan: He has some underlying kidney disease with a creatinine of around 1.2 to 1.3. This could be related to hypertensive or renovascular disease. Previous history of GILA and dialysis with hepatorenal syndrome. GILA potentially due to volume depletion, versus contrast induced GILA with recent CT scan. History of cirrhosis - He was previously on Lasix and Spironolactone. These were held, and patient has been on NS @ 100cc/hour Renal function worsening today, with creatinine 2.69 -> 3.29 Ongoing hypotension, with SBP 80s-90s Urine Na <5 - suggesting possible hepatorenal syndrome At this point, given worsening edema and volume overload, will hold IVFs. With apparent hepatorenal syndrome, will start midodrine and octreotide Serum albumin only 1.4 - will add albumin infusion. Based on UOP, may consider loop diuretic tomorrow. There is also a possibility of ATN here as well post contrast - continue to monitor renal function. Patient wants to avoid a Hensley catheter today - instructed to collect UOP for quantification. If little UOP, patient is agreeable to hensley tomorrow. (2) Abdominal wall hematoma Plan: Follow with general surgery - coagulopathy being corrected with FFPs (3) Liver cirrhosis Plan: diuretics on hold - closely monitor May consider to restart loop diruetic tomorrow if minimal UOP. (4) Hepatitis C (5) Alcohol abuse Problem Qualifiers (1) Abdominal wall hematoma: Qualified Code: S30.1XXA - Abdominal wall hematoma, initial encounter (2) Liver cirrhosis: Qualified Code: K70.30 - Alcoholic cirrhosis of liver without ascites Christian Cordero MD Jun 30, 2016 13:17
[2016-06-30] MEDS: ALBUMIN HUMAN 25% 25 GM/100 ML BAGP IV SCH (15:04)
[2016-06-30 16:00] VITALS: BP 116/56; PULSE 94; RESP 20; TEMP 97.9; O2SAT 100
[2016-06-30] MEDS: OCTREOTIDE INJ 500 MCG in SODIUM CHLORID 0.9% 500 ML INJ 499.5 ML IV SCH (16:47)
[2016-06-30] MEDS: MIDODRINE 5 MG TAB PO SCH (16:57)
[2016-06-30 20:49] VITALS: BP 106/55; PULSE 94; RESP 17; TEMP 98.6; O2SAT 96
[2016-06-30 23:00] VITALS: BP 128/58; PULSE 97; RESP 17; TEMP 98.9; O2SAT 96
[2016-07-01] MEDS: HYDROmorphone HCL PF 1 MG/ML VIAL IV PRN ×6 (00:29→18:07)
[2016-07-01] MEDS: ALBUMIN HUMAN 25% 25 GM/100 ML BAGP IV SCH ×2 (01:06→15:06)
[2016-07-01] MEDS: OCTREOTIDE INJ 500 MCG in SODIUM CHLORID 0.9% 500 ML INJ 499.5 ML IV SCH ×3 (01:23→15:22)
[2016-07-01 04:00] VITALS: BP 119/54; PULSE 62; RESP 18; TEMP 97; O2SAT 91
[2016-07-01] MEDS: MIDODRINE 5 MG TAB PO SCH ×3 (05:52→18:06)
[2016-07-01 07:24] LABS: AUTOMATED NEUTROPHIL # 14.3 TH/MM3 (1.8-7.7); BASOPHIL # 0.1 TH/MM3 (0-0.2); BASOPHIL % 0.5 % (0.0-2.0); EOSINOPHIL # 0.3 TH/MM3 (0-0.4); EOSINOPHIL % 2.1 % (0.0-4.0); HEMATOCRIT 25.6 % (39.0-51.0); LYMPH % 6.7 % (9.0-44.0); LYMPHOCYTE # 1.1 TH/MM3 (1.0-4.8); MEAN CELL VOLUME 102.1 FL (80.0-100.0); MEAN CORPUSCULAR HEMOGLOBIN 35.6 PG (27.0-34.0); MEAN CORPUSCULAR HGB CONC 34.9 % (32.0-36.0); MONO % 6.7 % (0.0-8.0); PLATELET COUNT 94 TH/MM3 (150-450); RED BLOOD COUNT 2.51 MIL/MM3 (4.50-5.90); RED CELL DISTRIBUTION WIDTH 16.4 % (11.6-17.2)
[2016-07-01 07:29] LABS: APTT (PATIENT) 58.4 SEC (24.3-30.1); INTERNATIONAL NORMALIZED RATIO 2.1 RATIO; PROTHROMBIN TIME - PATIENT 23.8 SEC (9.8-11.6)
[2016-07-01 07:34] LABS: ALT (GPT) 17 U/L (12-78); ANION GAP 11 MEQ/L (5-15); AST (GOT) 29 U/L (15-37); BICARBONATE 18.7 MEQ/L (21.0-32.0); BLOOD UREA NITROGEN 62 MG/DL (7-18); CHLORIDE 104 MEQ/L (98-107); GLOMERULAR FILTRATION RATE 19 ML/MIN (>89); POTASSIUM 5.3 MEQ/L (3.5-5.1); SODIUM (NA) 134 MEQ/L (136-145)
[2016-07-01 07:36] LABS: ALKALINE PHOSPHATASE 118 U/L (45-117); TOTAL BILIRUBIN ADULT 4.3 MG/DL (0.2-1.0)
[2016-07-01 08:12] LABS: HEMO FLAGS AUTO DIFF
[2016-07-01 08:43] VITALS: BP 108/46; PULSE 96; RESP 20; TEMP 98; O2SAT 97
[2016-07-01] MEDS: PSYLLIUM FIBER SF/GF 6 GM POWD PKT PO SCH ×2 (08:49→21:40)
[2016-07-01] MEDS: SODIUM CHLORIDE 0.9% FLUSH 10 ML FLUSH IV FLUSH SCH ×2 (08:50→21:41)
[2016-07-01 09:00] LABS: BANDS 25 % (0-6); EOSINOPHILS 1 % (0-4); NEUTROPHIL # MANUAL DIFF 14.8 TH/MM3 (1.8-7.7); POLYS (SEG NEUTROPHILS) 62 % (16-70); TOXIC GRANULATION 1+ (NORMAL); WBC DIFF SAMPLE 100
[2016-07-01 09:01] LABS: PLATELET ESTIMATE SMEAR LOW (NORMAL); PLATELET MORPHOLOGY NORMAL (NORMAL); SCAN/DIFF FINAL DIFF MANUAL
--- NOTE | 2016-07-01 10:29 | HHI.PR ---
Subjective Remarks resting comfortably with no distress. has some pain to the site of hematoma. no fever. Objective Vitals Vital Signs Date Time Temp Pulse Resp B/P Pulse Ox O2 Delivery O2 Flow Rate FiO2 07/01/16 09:30 16 07/01/16 08:43 98.0 96 20 108/46 97 07/01/16 04:00 97.0 62 18 119/54 91 06/30/16 23:00 98.9 97 17 128/58 96 06/30/16 20:49 98.6 94 17 106/55 96 06/30/16 16:00 97.9 94 20 116/56 100 06/30/16 12:00 97.8 97 20 99/49 95 I/O 06/30/16 06/30/16 06/30/16 07/01/16 07/01/16 07/01/16 07:00 15:00 23:00 07:00 15:00 23:00 Intake Total 900 ml 240 ml Output Total 350 ml 900 ml Balance 900 ml -110 ml -900 ml Intake Oral 900 ml 240 ml Output Urine Total 350 ml 900 ml # Voids 2 # Bowel Movements 3 0 Result Diagram: 07/01/16 0620 07/01/16 0620 Imaging Last Impressions Consultation 06/28/16 0000 Signed Impressions: Service Date/Time: Tuesday, June 28, 2016 00:00 - CONCLUSION: The hematoma in the anterior abdominal wall is mostly semi-solid and these do not respond to catheter drainage. If these do need to be drained, surgical drainage with vigorous aspiration and suction maybe the only way to remove this. Thank you for this consultation. Baljeet Mejia MD FACR Abdomen/Pelvis CT 06/26/16 1249 Signed Impressions: Service Date/Time: Sunday, June 26, 2016 14:26 - CONCLUSION: 1. 10.1 x 14.5 cm high density mass within the left rectus sheath most consistent with rectus hematoma. 2. Diffuse induration of the subcutaneous soft tissues in the left flank possibly related to asymmetric edema however underlying cellulitis could have this appearance as well. 3. Cirrhotic appearing liver with enlargement of the spleen, varices and ascites. Findings would be consistent with cirrhosis and portal hypertension. Christian Mejia MD Objective Remarks GENERAL: obese, in no apparent distress. CARDIOVASCULAR: Regular rate and regular rhythm without murmurs, gallops, or rubs. RESPIRATORY: Clear to auscultation. Breath sounds equal bilaterally. No wheezes , rales, or rhonchi. GASTROINTESTINAL: Abdomen soft, non-tender, hematoma noted on the left periumbilical area. Normal, active bowel sounds MUSCULOSKELETAL: Extremities without clubbing, cyanosis, or edema. NEURO: Alert & Oriented x4 to person, place, time, situation. Moves all ext x4 Procedures none Medications and IVs Current Medications Ondansetron HCl (Zofran Inj) 4 mg ONCE ONCE IVP Last administered on 06/26/16 13:00; Start 06/26/16 at 13:00; Stop 06/26/16 at 13:01; Status DC Pantoprazole Sodium 40 mg 40 mg ONCE ONCE IVP Last administered on 06/26/16 13 :00; Start 06/26/16 at 13:00; Stop 06/26/16 at 13:01; Status DC Sodium Chloride (NS 1000 ml Inj) 1,000 ml @ 125 mls/hr Q8H IV Last administered on 06/26/16 12:49; Start 06/26/16 at 12:49; Stop 06/26/16 at 20:48; Status DC Hydromorphone HCl (Dilaudid Pf Inj) 1 mg ONCE ONCE IVS Last administered on 13:00; Start 06/26/16 at 13:00; Stop 06/26/16 at 13:01; Status DC Iohexol 46 ml 46 ml STK-MED ONCE IV Last administered on 06/26/16 14:47; Start 06/26/16 at 14:47; Stop 06/26/16 at 14:48; Status DC Sodium Chloride 250 ml @ 15 mls/hr ONCE ONCE IV Last administered on 18:37; Start 06/26/16 at 16:00; Stop 06/27/16 at 08:39; Status DC Sodium Chloride 1,000 ml @ 70 mls/hr [id number] IV Last administered on 06/26/16 16:15; Start 06/26/16 at 16:15; Stop 06/26/16 at 17:14; Status DC Piperacillin Sod/ Tazobactam Sod 50 ml @ 100 mls/hr ONCE ONCE IV Last administered on 06/26/16 16:30; Start 06/26/16 at 16:30; Stop 06/26/16 at 16:59; Status DC Vancomycin HCl/ Sodium Chloride (Vancomycin Inj/ NS 250 ml Inj) 250 ml @ 250 mls/hr ONCE ONCE IV Last administered on 06/26/16 17:34; Start 06/26/16 at 16: 30; Stop 06/26/16 at 17:33; Status DC Spironolactone (Aldactone) 50 mg BID PO Last administered on 06/28/16 08:40; Start 06/26/16 at 21:00; Status Hold Furosemide (Lasix) 40 mg BID@09,18 PO Last administered on 06/27/16 09:06; Start 06/26/16 at 18:00; Stop 06/27/16 at 13:57; Status DC Lactulose (Lactulose Liq) 30 ml BID PO Last administered on 06/27/16 09:06; Start 06/26/16 at 21:00; Status Hold Sodium Chloride (NS Flush) 2 ml UNSCH PRN IV FLUSH FLUSH AFTER USING IV ACCESS Last administered on 06/29/16 06:06; Start 06/26/16 at 17:15 Sodium Chloride (NS Flush) 2 ml BID IV FLUSH Last administered on 07/01/16 08: 50; Start 06/26/16 at 21:00 Ondansetron HCl (Zofran Inj) 4 mg Q6H PRN IVP NAUSEA OR VOMITING Last administered on 06/27/16 12:12; Start 06/26/16 at 17:15 Hydromorphone HCl (Dilaudid Pf Inj) 1 mg Q3H PRN IV BREAKTHROUGH PAIN Last administered on 07/01/16 08:52; Start 06/26/16 at 17:15 Oxycodone HCl (Roxicodone) 5 mg Q4H PRN PO PAIN SCALE 6-10 Last administered on 06/30/16 05:24; Start 06/26/16 at 17:15 Naloxone HCl 0.4 mg 0.4 mg UNSCH PRN IV SEE LABEL COMMENTS; Start 06/26/16 at 17 :15 Pharmacy Profile Note 0 ml @ 0 mls/hr UNSCH OTHER ; Start 06/26/16 at 17:30; Status Cancel Piperacillin Sod/ Tazobactam Sod 50 ml @ 100 mls/hr Q8H IV Last administered on 06/28/16 08:41; Start 06/27/16 at 00:00; Stop 06/28/16 at 13:16; Status DC Vancomycin HCl 1500 mg/Sodium Chloride 515 ml @ 250 mls/hr ONCE ONCE IV Last administered on 06/26/16 19:09; Start 06/26/16 at 18:45; Stop 06/26/16 at 20:48; Status DC Vancomycin HCl/ Sodium Chloride (Vancomycin Inj/ NS 250 ml Inj) 262 ml @ 250 mls/hr Q12H IV Last administered on 06/27/16 09:18; Start 06/27/16 at 08:00; Stop 06/27/16 at 14:00; Status DC Miscellaneous Information SPECIFIC LAB TO BE ARTUR... ONCE ONCE .XX ; Start at 19:45; Stop 06/27/16 at 19:46; Status Cancel Furosemide 20 mg 20 mg BID@09,18 PO Last administered on 06/28/16 08:41; Start 06/27/16 at 18:00; Stop 06/28/16 at 10:26; Status DC Sodium Chloride (NS 1000 ml Inj) 1,000 ml @ 100 mls/hr Q10H IV Last administered on 06/30/16 05:25; Start 06/28/16 at 11:00; Stop 06/30/16 at 13:18; Status DC Psyllium Hydrophilic Mucilloid (Metamucil Smooth Texture Sf/ Gf Pkt) 1 pkt BID PO Last administered on 07/01/16 08:49; Start 06/30/16 at 11:45 Docusate Sodium (Colace) 100 mg BID PRN PO CONSTIPATION; Start 06/30/16 at 11:45 Midodrine 5 mg 5 mg TID@07,12,17 PO Last administered on 07/01/16 05:52; Start 06/30/16 at 17:00 Octreotide Acetate/Sodium Chloride (SandoSTATIN INJ/ NS 500 ml Inj) 500.0 ml @ 50 mls/hr Q10H IV Last administered on 07/01/16 01:23; Start 06/30/16 at 16:00 Albumin Human (Albumin 25% Inj) 25 gm Q12H IV Last administered on 07/01/16t 01 :06; Start 06/30/16 at 14:00 A/P Assessment and Plan A/P Rectus Sheath Hematoma (spontaneous) Acute Blood Loss Anemia Coagulopathy secondary to Cirrhosis Coagulopathy and Anemia/Bleed are stable. Transfuse Blood and/or FFP as needed Follow H/H and INR surgery following IR consulted but the hematoma is semisolid and can't be drained via catheter. PRN pain treatments Abdominal Wall Cellulitis Leukocytosis Improving off antibiotics evaluated by ID. GILA Worsened today Etiology for the elevated creatinine may be related to bleed/hematoma and contrast on midodrine, Octreotide and ablumin Follow renal function Nephrology following Reyna John MD Jul 01, 2016 10:29
[2016-07-01 14:08] VITALS: BP 115/56; PULSE 96; RESP 20; TEMP 98.2; O2SAT 96
[2016-07-01 15:46] VITALS: BP 124/66; PULSE 89; RESP 20; TEMP 97.6; O2SAT 98
--- NOTE | 2016-07-01 16:00 | HHI.NPPN ---
Subjective General Problems: Anemia, Edema Renal Failure: Chronic, Acute, Stage III History of Present Illness 51-year-old male with past medical history of diabetes mellitus which is longstanding, history of cirrhosis of the liver with alcoholism and hepatitis C, history of acute kidney injury in the past who came to the hospital because of abdominal wall hematoma and coagulopathy. I was called to see the patient because of elevated BUN and creatinine. His creatinine on admission was 1.6 and has gone up to 2.3. Previously he had a creatinine of 1.1-1.2. This has been going on for the last one year or so. Additional Remarks Patient is alert, no SOB, has mild abd. pain, no nausea. Review of Systems General Constitutional: Fatigue Cardiovascular Cardiac: CAMEJO Gastrointestinal Gastrointestinal: Abdominal Pain Objective Data Data 06/30/16 07/01/16 19:00 07:00 Intake Total 900 ml 240 ml Output Total 1250 ml Balance 900 ml -1010 ml Intake Oral 900 ml 240 ml Output Urine Total 1250 ml # Bowel Movements 0 Vital Signs Date Time Temp Pulse Resp B/P Pulse Ox O2 Delivery O2 Flow Rate FiO2 07/01/16 15:46 97.6 89 20 124/66 98 07/01/16 15:27 16 07/01/16 14:08 98.2 96 20 115/56 96 07/01/16 08:43 98.0 96 20 108/46 97 07/01/16 04:00 97.0 62 18 119/54 91 06/30/16 23:00 98.9 97 17 128/58 96 06/30/16 20:49 98.6 94 17 106/55 96 06/30/16 16:00 97.9 94 20 116/56 100 -: 07/01/16 0620 07/01/16 0620 Physical Exam General Appearance: No Acute Distress, Comfortable Throat Throat Exam: Oral Mucosa [place] & Moist Neck Neck Exam: Neck Supple Pulmonary Resp Exam: Breath Sounds Equal, No Distress, Rhonchi, Decreased Bases, Diminished Breath Sounds Cardiology CV Exam: Regular Gastrointestinal/Abdomen GI Exam: Soft, Distended (bulging lesion left of umblicus, mildly tender.) Integumentary Skin Exam: Dry, Intact Extremeties Extremities Exam: Trace Edema, Pitting Edema Neurologic Neuro Exam: Alert, Awake Psychiatric Psych Exam: Appropriate Responses Assessment/Plan Problem List: (1) GILA (acute kidney injury) Plan: He has some underlying kidney disease with a creatinine of around 1.2 to 1.3. This could be related to hypertensive or renovascular disease. Previous history of GILA and dialysis with hepatorenal syndrome. GILA potentially due to volume depletion, versus contrast induced GILA with recent CT scan. History of cirrhosis - He was previously on Lasix and Spironolactone. These were held. Urine Na <5 - suggesting possible hepatorenal syndrome Off IVF, Creatinine is still not improving. Follow urine out put and BMP. Stabilize hemodynamics, on Midodrine. (2) Abdominal wall hematoma Plan: Follow with general surgery - coagulopathy being corrected with FFPs (3) Liver cirrhosis Plan: diuretics on hold - closely monitor May consider to restart loop diruetic tomorrow if minimal UOP. (4) Hepatitis C (5) Alcohol abuse Problem Qualifiers (1) Abdominal wall hematoma: Qualified Code: S30.1XXA - Abdominal wall hematoma, initial encounter (2) Liver cirrhosis: Qualified Code: K70.30 - Alcoholic cirrhosis of liver without ascites (3) Hepatitis C: Vi Gonzalez MD Jul 01, 2016 16:00
--- NOTE | 2016-07-01 17:13 | HHI.PR ---
Subjective Subjective Notes Resting in bed Tearful when he talks about his pain Objective Vitals/I&O Vital Signs Date Time Temp Pulse Resp B/P Pulse Ox O2 Delivery O2 Flow Rate FiO2 07/01/16 15:46 97.6 89 20 124/66 98 06/27/16 17:37 21 Labs Laboratory Tests Test 07/01/16 06:20 White Blood Count 17.0 Red Blood Count 2.51 Hemoglobin 8.9 Hematocrit 25.6 Mean Corpuscular Volume 102.1 Mean Corpuscular Hemoglobin 35.6 Mean Corpuscular Hemoglobin 34.9 Concent Red Cell Distribution Width 16.4 Platelet Count 94 Mean Platelet Volume 8.2 Neutrophils (%) (Auto) 84.0 Lymphocytes (%) (Auto) 6.7 Monocytes (%) (Auto) 6.7 Eosinophils (%) (Auto) 2.1 Basophils (%) (Auto) 0.5 Neutrophils # (Auto) 14.3 Lymphocytes # (Auto) 1.1 Monocytes # (Auto) 1.1 Eosinophils # (Auto) 0.3 Basophils # (Auto) 0.1 CBC Comment AUTO DIFF Differential Total Cells 100 Counted Neutrophils % (Manual) 62 Band Neutrophils % 25 Lymphocytes % 7 Monocytes % 5 Eosinophils % 1 Neutrophils # (Manual) 14.8 Differential Comment FINAL DIFF MANUAL Toxic Granulation 1+ Platelet Estimate LOW Platelet Morphology Comment NORMAL Prothrombin Time 23.8 Prothromb Time International 2.1 Ratio Activated Partial 58.4 Thromboplast Time Sodium Level 134 Potassium Level 5.3 Chloride Level 104 Carbon Dioxide Level 18.7 Anion Gap 11 Blood Urea Nitrogen 62 Creatinine 3.46 Estimat Glomerular Filtration 19 Rate Random Glucose 136 Calcium Level 8.0 Total Bilirubin 4.3 Aspartate Amino Transf 29 (AST/SGOT) Alanine Aminotransferase 17 (ALT/SGPT) Alkaline Phosphatase 118 Total Protein 7.0 Albumin 1.6 Cardiovascular: Regular Lungs: Clear Abdomen: Other (LEFt sided abdominal wall hematoma--- slightly decreased in size ) Extremities: No edema A/P Assessment and Plan 51 year old male with large LEFT abdominal wall hematoma -Continue to correct coagulopathy to prevent further bleeding -INR 2.1; management per Primary Team -Heart healthy diet -No acute surgical intervention at this time -GS will sign off Attending Statement patient seen at bedside correct coags non op tx will s/o Attestation The exam, history, and the medical decision-making described in the above note were completed with the assistance of the mid-level provider. I reviewed and agree with the findings presented. I attest that I had a [id number] encounter with the patient on the same day, and personally performed and documented my assessment and findings in the medical record. Najma Garcia Jul 01, 2016 17:13 Sami Segura MD Aug 31, 2016 22:18
[2016-07-01 20:00] VITALS: BP 115/51; PULSE 90; RESP 20; TEMP 98.3; O2SAT 98
[2016-07-01] MEDS: HYDROmorphone HCL PF 1 MG/ML VIAL IV PUSH PRN (21:36)
[2016-07-02] VITALS (7 sets, daily range): BP systolic 105–197; BP diastolic 51–80; PULSE 81–100; RESP 18–20; TEMP 97–98.6; O2SAT 97–100
[2016-07-02] MEDS: ALBUMIN HUMAN 25% 25 GM/100 ML BAGP IV SCH ×2 (02:50→13:09)
[2016-07-02] MEDS: HYDROmorphone HCL PF 1 MG/ML VIAL IV PUSH PRN ×7 (03:35→23:45)
[2016-07-02] MEDS: SODIUM CHLORIDE 0.9% FLUSH 10 ML FLUSH IV FLUSH PRN (03:35)
[2016-07-02] MEDS: OCTREOTIDE INJ 500 MCG in SODIUM CHLORID 0.9% 500 ML INJ 499.5 ML IV SCH ×2 (03:56→17:51)
[2016-07-02] MEDS: MIDODRINE 5 MG TAB PO SCH ×3 (06:28→17:51)
[2016-07-02] MEDS: PSYLLIUM FIBER SF/GF 6 GM POWD PKT PO SCH ×2 (09:59→20:18)
[2016-07-02] MEDS: SODIUM CHLORIDE 0.9% FLUSH 10 ML FLUSH IV FLUSH SCH ×2 (09:59→20:18)
[2016-07-02 10:00] LABS: INTERNATIONAL NORMALIZED RATIO 2.1 RATIO; PROTHROMBIN TIME - PATIENT 24.1 SEC (9.8-11.6)
[2016-07-02 10:26] LABS: BICARBONATE 17.9 MEQ/L (21.0-32.0)
[2016-07-02 10:27] LABS: POTASSIUM 5.7 MEQ/L (3.5-5.1)
--- NOTE | 2016-07-02 10:55 | HHI.PR ---
Subjective Remarks still with some abdominal pain at the site of hematoma. afebrile. Objective Vitals Vital Signs Date Time Temp Pulse Resp B/P Pulse Ox O2 Delivery O2 Flow Rate FiO2 07/02/16 08:00 97.0 86 20 118/52 98 07/02/16 04:00 97.4 100 20 127/63 99 07/02/16 00:00 98.0 81 18 111/73 99 07/01/16 20:00 98.3 90 20 115/51 98 07/01/16 18:50 16 07/01/16 15:46 97.6 89 20 124/66 98 07/01/16 14:08 98.2 96 20 115/56 96 I/O 07/01/16 07/01/16 07/01/16 07/02/16 07/02/16 07/02/16 07:00 15:00 23:00 07:00 15:00 23:00 Intake Total 813 ml 628 ml Output Total 900 ml Balance -900 ml 813 ml 628 ml IV Total 813 ml 628 ml Output Urine Total 900 ml # Voids 2 # Bowel Movements 3 Result Diagram: 07/01/16 0620 07/02/16 0931 Imaging Last Impressions Consultation 06/28/16 0000 Signed Impressions: Service Date/Time: Tuesday, June 28, 2016 00:00 - CONCLUSION: The hematoma in the anterior abdominal wall is mostly semi-solid and these do not respond to catheter drainage. If these do need to be drained, surgical drainage with vigorous aspiration and suction maybe the only way to remove this. Thank you for this consultation. Baljeet Mejia MD FACR Abdomen/Pelvis CT 06/26/16 1249 Signed Impressions: Service Date/Time: Sunday, June 26, 2016 14:26 - CONCLUSION: 1. 10.1 x 14.5 cm high density mass within the left rectus sheath most consistent with rectus hematoma. 2. Diffuse induration of the subcutaneous soft tissues in the left flank possibly related to asymmetric edema however underlying cellulitis could have this appearance as well. 3. Cirrhotic appearing liver with enlargement of the spleen, varices and ascites. Findings would be consistent with cirrhosis and portal hypertension. Christian Mejia MD Objective Remarks GENERAL: obese, in no apparent distress. CARDIOVASCULAR: Regular rate and regular rhythm without murmurs, gallops, or rubs. RESPIRATORY: Clear to auscultation. Breath sounds equal bilaterally. No wheezes , rales, or rhonchi. GASTROINTESTINAL: Abdomen soft, non-tender, hematoma noted on the left periumbilical area. Normal, active bowel sounds MUSCULOSKELETAL: Extremities without clubbing, cyanosis, or edema. NEURO: Alert & Oriented x4 to person, place, time, situation. Moves all ext x4 Procedures none Medications and IVs Current Medications Ondansetron HCl (Zofran Inj) 4 mg ONCE ONCE IVP Last administered on 06/26/16 13:00; Start 06/26/16 at 13:00; Stop 06/26/16 at 13:01; Status DC Pantoprazole Sodium 40 mg 40 mg ONCE ONCE IVP Last administered on 06/26/16 13 :00; Start 06/26/16 at 13:00; Stop 06/26/16 at 13:01; Status DC Sodium Chloride (NS 1000 ml Inj) 1,000 ml @ 125 mls/hr Q8H IV Last administered on 06/26/16 12:49; Start 06/26/16 at 12:49; Stop 06/26/16 at 20:48; Status DC Hydromorphone HCl (Dilaudid Pf Inj) 1 mg ONCE ONCE IVS Last administered on 13:00; Start 06/26/16 at 13:00; Stop 06/26/16 at 13:01; Status DC Iohexol 46 ml 46 ml STK-MED ONCE IV Last administered on 06/26/16 14:47; Start 06/26/16 at 14:47; Stop 06/26/16 at 14:48; Status DC Sodium Chloride 250 ml @ 15 mls/hr ONCE ONCE IV Last administered on 18:37; Start 06/26/16 at 16:00; Stop 06/27/16 at 08:39; Status DC Sodium Chloride 1,000 ml @ 70 mls/hr [id number] IV Last administered on 06/26/16 16:15; Start 06/26/16 at 16:15; Stop 06/26/16 at 17:14; Status DC Piperacillin Sod/ Tazobactam Sod 50 ml @ 100 mls/hr ONCE ONCE IV Last administered on 06/26/16 16:30; Start 06/26/16 at 16:30; Stop 06/26/16 at 16:59; Status DC Vancomycin HCl/ Sodium Chloride (Vancomycin Inj/ NS 250 ml Inj) 250 ml @ 250 mls/hr ONCE ONCE IV Last administered on 06/26/16 17:34; Start 06/26/16 at 16: 30; Stop 06/26/16 at 17:33; Status DC Spironolactone (Aldactone) 50 mg BID PO Last administered on 06/28/16 08:40; Start 06/26/16 at 21:00; Status Hold Furosemide (Lasix) 40 mg BID@09,18 PO Last administered on 06/27/16 09:06; Start 06/26/16 at 18:00; Stop 06/27/16 at 13:57; Status DC Lactulose (Lactulose Liq) 30 ml BID PO Last administered on 06/27/16 09:06; Start 06/26/16 at 21:00; Status Hold Sodium Chloride (NS Flush) 2 ml UNSCH PRN IV FLUSH FLUSH AFTER USING IV ACCESS Last administered on 07/02/16 03:35; Start 06/26/16 at 17:15 Sodium Chloride (NS Flush) 2 ml BID IV FLUSH Last administered on 07/02/16 09: 59; Start 06/26/16 at 21:00 Ondansetron HCl (Zofran Inj) 4 mg Q6H PRN IVP NAUSEA OR VOMITING Last administered on 06/27/16 12:12; Start 06/26/16 at 17:15 Hydromorphone HCl (Dilaudid Pf Inj) 1 mg Q3H PRN IV BREAKTHROUGH PAIN Last administered on 07/01/16 18:07; Start 06/26/16 at 17:15; Stop 07/01/16 at 21:11 ; Status DC Oxycodone HCl (Roxicodone) 5 mg Q4H PRN PO PAIN SCALE 6-10 Last administered on 06/30/16 05:24; Start 06/26/16 at 17:15; Stop 07/01/16 at 21:11; Status DC Naloxone HCl 0.4 mg 0.4 mg UNSCH PRN IV SEE LABEL COMMENTS; Start 06/26/16 at 17 :15 Pharmacy Profile Note 0 ml @ 0 mls/hr UNSCH OTHER ; Start 06/26/16 at 17:30; Status Cancel Piperacillin Sod/ Tazobactam Sod 50 ml @ 100 mls/hr Q8H IV Last administered on 06/28/16 08:41; Start 06/27/16 at 00:00; Stop 06/28/16 at 13:16; Status DC Vancomycin HCl 1500 mg/Sodium Chloride 515 ml @ 250 mls/hr ONCE ONCE IV Last administered on 06/26/16 19:09; Start 06/26/16 at 18:45; Stop 06/26/16 at 20:48; Status DC Vancomycin HCl/ Sodium Chloride (Vancomycin Inj/ NS 250 ml Inj) 262 ml @ 250 mls/hr Q12H IV Last administered on 06/27/16 09:18; Start 06/27/16 at 08:00; Stop 06/27/16 at 14:00; Status DC Miscellaneous Information SPECIFIC LAB TO BE ARTUR... ONCE ONCE .XX ; Start at 19:45; Stop 06/27/16 at 19:46; Status Cancel Furosemide 20 mg 20 mg BID@09,18 PO Last administered on 06/28/16 08:41; Start 06/27/16 at 18:00; Stop 06/28/16 at 10:26; Status DC Sodium Chloride (NS 1000 ml Inj) 1,000 ml @ 100 mls/hr Q10H IV Last administered on 06/30/16 05:25; Start 06/28/16 at 11:00; Stop 06/30/16 at 13:18; Status DC Psyllium Hydrophilic Mucilloid (Metamucil Smooth Texture Sf/ Gf Pkt) 1 pkt BID PO Last administered on 07/02/16 09:59; Start 06/30/16 at 11:45 Docusate Sodium (Colace) 100 mg BID PRN PO CONSTIPATION; Start 06/30/16 at 11:45 Midodrine 5 mg 5 mg TID@07,12,17 PO Last administered on 07/02/16 06:28; Start 06/30/16 at 17:00 Octreotide Acetate/Sodium Chloride (SandoSTATIN INJ/ NS 500 ml Inj) 500.0 ml @ 50 mls/hr Q10H IV Last administered on 07/02/16 03:56; Start 06/30/16 at 16:00 Albumin Human (Albumin 25% Inj) 25 gm Q12H IV Last administered on 07/02/16 02 :50; Start 06/30/16 at 14:00 Hydromorphone HCl (Dilaudid Pf Inj) 0.2 mg Q3HR PRN IV PUSH pain >5 Last administered on 07/02/16 09:55; Start 07/01/16 at 21:15 A/P Assessment and Plan A/P Rectus Sheath Hematoma (spontaneous) Acute Blood Loss Anemia Coagulopathy secondary to Cirrhosis Coagulopathy and Anemia/Bleed are stable. Transfuse Blood and/or FFP as needed one dose of Vitamin K today Follow H/H and INR surgery follow-up appreciated and no plan for surgical intervention at this time. IR consulted but the hematoma is semisolid and can't be drained via catheter. PRN pain treatments Abdominal Wall Cellulitis Leukocytosis Improving off antibiotics evaluated by ID. GILA creatinine is trending up. Etiology for the elevated creatinine may be related to bleed/hematoma and contrast on midodrine, Octreotide and albumin Follow renal function Nephrology following hyperkalemia; one dose of kayexalate today- will monitor. Reyna John MD Jul 02, 2016 10:55
[2016-07-02] MEDS ORDERED: PHYTONADIONE 5 MG TAB PO ONE (11:00)
[2016-07-02] MEDS ORDERED: SODIUM POLYSTYRENE SULFONATE SUSP 15 GM/60 ML CUP PO ONE (11:00)
--- NOTE | 2016-07-02 16:39 | HHI.NPPN ---
Subjective General Problems: Anemia, Edema Renal Failure: Chronic, Acute, Stage III History of Present Illness 51-year-old male with past medical history of diabetes mellitus which is longstanding, history of cirrhosis of the liver with alcoholism and hepatitis C, history of acute kidney injury in the past who came to the hospital because of abdominal wall hematoma and coagulopathy. I was called to see the patient because of elevated BUN and creatinine. His creatinine on admission was 1.6 and has gone up to 2.3. Previously he had a creatinine of 1.1-1.2. This has been going on for the last one year or so. Additional Remarks Patient is alert, has pain in abd., no SOB. Review of Systems General Constitutional: Fatigue Cardiovascular Cardiac: CAMEJO Gastrointestinal Gastrointestinal: Abdominal Pain Objective Data Data 07/01/16 07/02/16 19:00 07:00 Intake Total 813 ml 628 ml Balance 813 ml 628 ml IV Total 813 ml 628 ml # Voids 2 # Bowel Movements 3 Vital Signs Date Time Temp Pulse Resp B/P Pulse Ox O2 Delivery O2 Flow Rate FiO2 07/02/16 12:00 98.0 87 20 105/51 100 07/02/16 08:00 97.0 86 20 118/52 98 07/02/16 04:00 97.4 100 20 127/63 99 07/02/16 00:00 98.0 81 18 111/73 99 07/01/16 20:00 98.3 90 20 115/51 98 07/01/16 18:50 16 -: 07/01/16 0620 07/02/16 0931 Physical Exam General Appearance: No Acute Distress, Comfortable Throat Throat Exam: Oral Mucosa Amery & Moist Neck Neck Exam: Neck Supple Pulmonary Resp Exam: Breath Sounds Equal, No Distress, Rhonchi, Decreased Bases, Diminished Breath Sounds Cardiology CV Exam: Regular Gastrointestinal/Abdomen GI Exam: Soft, Distended (bulging lesion left of umblicus, mildly tender.) Integumentary Skin Exam: Dry, Intact Extremeties Extremities Exam: Trace Edema, Pitting Edema Neurologic Neuro Exam: Alert, Awake Psychiatric Psych Exam: Appropriate Responses Assessment/Plan Problem List: (1) GILA (acute kidney injury) Plan: He has some underlying kidney disease with a creatinine of around 1.2 to 1.3. This could be related to hypertensive or renovascular disease. Previous history of GILA and dialysis with hepatorenal syndrome. GILA potentially due to volume depletion, versus contrast induced GILA with recent CT scan. History of cirrhosis - He was previously on Lasix and Spironolactone. These were held. Urine Na <5 - suggesting possible hepatorenal syndrome Off IVF, Creatinine is increasing. K was 5.7, and got Kayexalate. Hco3 is low, add NaHco3. (2) Abdominal wall hematoma Plan: Follow with general surgery - coagulopathy being corrected with FFPs (3) Liver cirrhosis Plan: diuretics on hold - closely monitor May consider to restart loop diruetic tomorrow if minimal UOP. (4) Hepatitis C (5) Alcohol abuse Problem Qualifiers (1) Abdominal wall hematoma: Qualified Code: S30.1XXA - Abdominal wall hematoma, initial encounter (2) Liver cirrhosis: Qualified Code: K70.30 - Alcoholic cirrhosis of liver without ascites (3) Hepatitis C: Vi Gonzalez MD Jul 02, 2016 16:39
[2016-07-02] MEDS: SODIUM BICARBONATE 650 MG TAB PO SCH ×2 (17:51→20:18)
[2016-07-03 00:16] VITALS: BP 117/60; PULSE 92; RESP 18; TEMP 98.8; O2SAT 98
[2016-07-03] MEDS: ALBUMIN HUMAN 25% 25 GM/100 ML BAGP IV SCH ×2 (02:55→13:51)
[2016-07-03] MEDS: SODIUM CHLORIDE 0.9% FLUSH 10 ML FLUSH IV FLUSH PRN ×3 (02:56→09:30)
[2016-07-03] MEDS: HYDROmorphone HCL PF 1 MG/ML VIAL IV PUSH PRN ×6 (02:56→22:53)
[2016-07-03] MEDS: OCTREOTIDE INJ 500 MCG in SODIUM CHLORID 0.9% 500 ML INJ 499.5 ML IV SCH ×2 (03:20→15:24)
[2016-07-03 04:39] VITALS: BP 125/45; PULSE 90; RESP 18; TEMP 98.4; O2SAT 98
[2016-07-03] MEDS: MIDODRINE 5 MG TAB PO SCH ×3 (06:29→18:18)
[2016-07-03] MEDS: SODIUM BICARBONATE 650 MG TAB PO SCH ×3 (06:29→22:13)
[2016-07-03 08:58] VITALS: BP 124/54; PULSE 82; RESP 16; TEMP 97.6; O2SAT 98
[2016-07-03] MEDS: SODIUM CHLORIDE 0.9% FLUSH 10 ML FLUSH IV FLUSH SCH ×2 (09:00→22:14)
[2016-07-03] MEDS: PSYLLIUM FIBER SF/GF 6 GM POWD PKT PO SCH ×2 (09:32→22:14)
[2016-07-03 10:12] LABS: AUTOMATED NEUTROPHIL # 15.3 TH/MM3 (1.8-7.7); BASOPHIL # 0.2 TH/MM3 (0-0.2); BASOPHIL % 0.9 % (0.0-2.0); EOSINOPHIL # 0.3 TH/MM3 (0-0.4); EOSINOPHIL % 1.8 % (0.0-4.0); HEMATOCRIT 25.1 % (39.0-51.0); LYMPH % 5.6 % (9.0-44.0); MEAN CELL VOLUME 101.7 FL (80.0-100.0); MEAN CORPUSCULAR HEMOGLOBIN 35.4 PG (27.0-34.0); MEAN CORPUSCULAR HGB CONC 34.8 % (32.0-36.0); MONO % 5.8 % (0.0-8.0); NEUT % 85.9 % (16.0-70.0); PLATELET COUNT 80 TH/MM3 (150-450); RED BLOOD COUNT 2.47 MIL/MM3 (4.50-5.90); WHITE BLOOD COUNT 17.8 TH/MM3 (4.0-11.0)
[2016-07-03 10:15] LABS: INTERNATIONAL NORMALIZED RATIO 2.2 RATIO; PROTHROMBIN TIME - PATIENT 24.7 SEC (9.8-11.6)
[2016-07-03 10:18] LABS: HEMO FLAGS AUTO DIFF
[2016-07-03 10:32] LABS: BICARBONATE 19.6 MEQ/L (21.0-32.0)
--- NOTE | 2016-07-03 10:36 | HHI.PR ---
Subjective Remarks in no acute distress. abdominal pain seems to be better. no nausea or vomiting. no fever. Objective Vitals Vital Signs Date Time Temp Pulse Resp B/P Pulse Ox O2 Delivery O2 Flow Rate FiO2 07/03/16 08:58 97.6 82 16 124/54 98 07/03/16 08:35 18 07/03/16 04:39 98.4 90 18 125/45 98 07/03/16 00:16 98.8 92 18 117/60 98 07/02/16 21:20 98.6 89 18 114/57 98 07/02/16 18:14 109/56 07/02/16 16:00 97.7 88 20 197/80 97 07/02/16 12:00 98.0 87 20 105/51 100 I/O 07/02/16 07/02/16 07/02/16 07/03/16 07/03/16 07/03/16 07:00 15:00 23:00 07:00 15:00 23:00 Intake Total 628 ml 360 ml Output Total 50 ml 575 ml Balance 628 ml -50 ml -215 ml Intake Oral 360 ml IV Total 628 ml Output Urine Total 50 ml 575 ml # Voids 2 1 1 # Bowel Movements 3 1 1 Result Diagram: 07/03/16 0850 07/02/16 0931 Imaging Last Impressions Consultation 06/28/16 0000 Signed Impressions: Service Date/Time: Tuesday, June 28, 2016 00:00 - CONCLUSION: The hematoma in the anterior abdominal wall is mostly semi-solid and these do not respond to catheter drainage. If these do need to be drained, surgical drainage with vigorous aspiration and suction maybe the only way to remove this. Thank you for this consultation. Baljeet Mejia MD FACR Abdomen/Pelvis CT 06/26/16 1249 Signed Impressions: Service Date/Time: Sunday, June 26, 2016 14:26 - CONCLUSION: 1. 10.1 x 14.5 cm high density mass within the left rectus sheath most consistent with rectus hematoma. 2. Diffuse induration of the subcutaneous soft tissues in the left flank possibly related to asymmetric edema however underlying cellulitis could have this appearance as well. 3. Cirrhotic appearing liver with enlargement of the spleen, varices and ascites. Findings would be consistent with cirrhosis and portal hypertension. Christian Mejia MD Objective Remarks GENERAL: obese, in no apparent distress. CARDIOVASCULAR: Regular rate and regular rhythm without murmurs, gallops, or rubs. RESPIRATORY: Clear to auscultation. Breath sounds equal bilaterally. No wheezes , rales, or rhonchi. GASTROINTESTINAL: Abdomen soft, non-tender, hematoma noted on the left periumbilical area. Normal, active bowel sounds MUSCULOSKELETAL: Extremities without clubbing, cyanosis, or edema. NEURO: Alert & Oriented x4 to person, place, time, situation. Moves all ext x4 Procedures none Medications and IVs Current Medications Ondansetron HCl (Zofran Inj) 4 mg ONCE ONCE IVP Last administered on 06/26/16 13:00; Start 06/26/16 at 13:00; Stop 06/26/16 at 13:01; Status DC Pantoprazole Sodium 40 mg 40 mg ONCE ONCE IVP Last administered on 06/26/16 13 :00; Start 06/26/16 at 13:00; Stop 06/26/16 at 13:01; Status DC Sodium Chloride (NS 1000 ml Inj) 1,000 ml @ 125 mls/hr Q8H IV Last administered on 06/26/16 12:49; Start 06/26/16 at 12:49; Stop 06/26/16 at 20:48; Status DC Hydromorphone HCl (Dilaudid Pf Inj) 1 mg ONCE ONCE IVS Last administered on 13:00; Start 06/26/16 at 13:00; Stop 06/26/16 at 13:01; Status DC Iohexol 46 ml 46 ml STK-MED ONCE IV Last administered on 06/26/16 14:47; Start 06/26/16 at 14:47; Stop 06/26/16 at 14:48; Status DC Sodium Chloride 250 ml @ 15 mls/hr ONCE ONCE IV Last administered on 18:37; Start 06/26/16 at 16:00; Stop 06/27/16 at 08:39; Status DC Sodium Chloride 1,000 ml @ 70 mls/hr [id number] IV Last administered on 06/26/16 16:15; Start 06/26/16 at 16:15; Stop 06/26/16 at 17:14; Status DC Piperacillin Sod/ Tazobactam Sod 50 ml @ 100 mls/hr ONCE ONCE IV Last administered on 06/26/16 16:30; Start 06/26/16 at 16:30; Stop 06/26/16 at 16:59; Status DC Vancomycin HCl/ Sodium Chloride (Vancomycin Inj/ NS 250 ml Inj) 250 ml @ 250 mls/hr ONCE ONCE IV Last administered on 06/26/16 17:34; Start 06/26/16 at 16: 30; Stop 06/26/16 at 17:33; Status DC Spironolactone (Aldactone) 50 mg BID PO Last administered on 06/28/16 08:40; Start 06/26/16 at 21:00; Status Hold Furosemide (Lasix) 40 mg BID@09,18 PO Last administered on 06/27/16 09:06; Start 06/26/16 at 18:00; Stop 06/27/16 at 13:57; Status DC Lactulose (Lactulose Liq) 30 ml BID PO Last administered on 06/27/16 09:06; Start 06/26/16 at 21:00; Status Hold Sodium Chloride (NS Flush) 2 ml UNSCH PRN IV FLUSH FLUSH AFTER USING IV ACCESS Last administered on 07/03/16 09:30; Start 06/26/16 at 17:15 Sodium Chloride (NS Flush) 2 ml BID IV FLUSH Last administered on 07/02/16 20: 18; Start 06/26/16 at 21:00 Ondansetron HCl (Zofran Inj) 4 mg Q6H PRN IVP NAUSEA OR VOMITING Last administered on 06/27/16 12:12; Start 06/26/16 at 17:15 Hydromorphone HCl (Dilaudid Pf Inj) 1 mg Q3H PRN IV BREAKTHROUGH PAIN Last administered on 07/01/16 18:07; Start 06/26/16 at 17:15; Stop 07/01/16 at 21:11 ; Status DC Oxycodone HCl (Roxicodone) 5 mg Q4H PRN PO PAIN SCALE 6-10 Last administered on 06/30/16 05:24; Start 06/26/16 at 17:15; Stop 07/01/16 at 21:11; Status DC Naloxone HCl 0.4 mg 0.4 mg UNSCH PRN IV SEE LABEL COMMENTS; Start 06/26/16 at 17 :15 Pharmacy Profile Note 0 ml @ 0 mls/hr UNSCH OTHER ; Start 06/26/16 at 17:30; Status Cancel Piperacillin Sod/ Tazobactam Sod 50 ml @ 100 mls/hr Q8H IV Last administered on 06/28/16 08:41; Start 06/27/16 at 00:00; Stop 06/28/16 at 13:16; Status DC Vancomycin HCl 1500 mg/Sodium Chloride 515 ml @ 250 mls/hr ONCE ONCE IV Last administered on 06/26/16 19:09; Start 06/26/16 at 18:45; Stop 06/26/16 at 20:48; Status DC Vancomycin HCl/ Sodium Chloride (Vancomycin Inj/ NS 250 ml Inj) 262 ml @ 250 mls/hr Q12H IV Last administered on 06/27/16 09:18; Start 06/27/16 at 08:00; Stop 06/27/16 at 14:00; Status DC Miscellaneous Information SPECIFIC LAB TO BE ... ONCE ONCE .XX ; Start at 19:45; Stop 06/27/16 at 19:46; Status Cancel Furosemide 20 mg 20 mg BID@09,18 PO Last administered on 06/28/16 08:41; Start 06/27/16 at 18:00; Stop 06/28/16 at 10:26; Status DC Sodium Chloride (NS 1000 ml Inj) 1,000 ml @ 100 mls/hr Q10H IV Last administered on 06/30/16 05:25; Start 06/28/16 at 11:00; Stop 06/30/16 at 13:18; Status DC Psyllium Hydrophilic Mucilloid (Metamucil Smooth Texture Sf/ Gf Pkt) 1 pkt BID PO Last administered on 07/03/16 09:32; Start 06/30/16 at 11:45 Docusate Sodium (Colace) 100 mg BID PRN PO CONSTIPATION Last administered on 20:18; Start 06/30/16 at 11:45 Midodrine 5 mg 5 mg TID@07,12,17 PO Last administered on 07/03/16 06:29; Start 06/30/16 at 17:00 Octreotide Acetate/Sodium Chloride (SandoSTATIN INJ/ NS 500 ml Inj) 500.0 ml @ 50 mls/hr Q10H IV Last administered on 07/03/16 03:20; Start 06/30/16 at 16:00 Albumin Human (Albumin 25% Inj) 25 gm Q12H IV Last administered on 07/03/16 02 :55; Start 06/30/16 at 14:00 Hydromorphone HCl (Dilaudid Pf Inj) 0.2 mg Q3HR PRN IV PUSH pain >5 Last administered on 07/02/16 09:55; Start 07/01/16 at 21:15; Stop 07/02/16 at 10:52 ; Status DC Hydromorphone HCl (Dilaudid Pf Inj) 0.5 mg Q3HR PRN IV PUSH pain >5 Last administered on 07/03/16 09:32; Start 07/02/16 at 11:00 Sodium Polystyrene Sulfonate (Kayexalate Liq) 15 gm ONCE ONCE PO Last administered on 07/02/16 11:38; Start 07/02/16 at 11:00; Stop 07/02/16 at 11:07 ; Status DC Phytonadione (Mephyton) 5 mg ONCE ONCE PO Last administered on 07/02/16 11:39 ; Start 07/02/16 at 11:00; Stop 07/02/16 at 11:08; Status DC Sodium Bicarbonate (Sodium Bicarbonate) 650 mg Q8HR PO Last administered on 06:29; Start 07/02/16 at 17:00 A/P Assessment and Plan A/P Rectus Sheath Hematoma (spontaneous) Acute Blood Loss Anemia Coagulopathy secondary to Cirrhosis Coagulopathy and Anemia/Bleed are stable. Transfuse Blood and/or FFP as needed Follow H/H and INR surgery follow-up appreciated and no plan for surgical intervention at this time. IR consulted but the hematoma is semisolid and can't be drained via catheter. PRN pain treatments Abdominal Wall Cellulitis Leukocytosis Improving off antibiotics evaluated by ID. GILA creatinine is trending up. Etiology for the elevated creatinine may be related to bleed/hematoma and contrast on midodrine, Octreotide,sodium bicarbonate and albumin Follow renal function Nephrology following hyperkalemia; will monitor- BMP today pending. consult PT. Discharge Planning dc planning to SNF. case management consulted. Reyna John MD Jul 03, 2016 10:36
[2016-07-03 11:54] LABS: BANDS 25 % (0-6); NEUTROPHIL # MANUAL DIFF 16.6 TH/MM3 (1.8-7.7); POLYS (SEG NEUTROPHILS) 68 % (16-70); WBC DIFF SAMPLE 100
[2016-07-03 11:56] LABS: TOXIC GRANULATION 1+ (NORMAL)
[2016-07-03 11:57] LABS: PLATELET ESTIMATE SMEAR LOW (NORMAL); PLATELET MORPHOLOGY NORMAL (NORMAL)
[2016-07-03 11:58] LABS: SCAN/DIFF FINAL DIFF MANUAL
[2016-07-03 13:20] VITALS: BP 107/54; PULSE 82; RESP 16; TEMP 97.3; O2SAT 96
[2016-07-03 16:47] VITALS: BP 108/57; PULSE 74; RESP 16; TEMP 97.1; O2SAT 95
--- NOTE | 2016-07-03 16:49 | HHI.NPPN ---
Subjective General Problems: Anemia, Edema Renal Failure: Chronic, Acute, Stage III History of Present Illness 51-year-old male with past medical history of diabetes mellitus which is longstanding, history of cirrhosis of the liver with alcoholism and hepatitis C, history of acute kidney injury in the past who came to the hospital because of abdominal wall hematoma and coagulopathy. I was called to see the patient because of elevated BUN and creatinine. His creatinine on admission was 1.6 and has gone up to 2.3. Previously he had a creatinine of 1.1-1.2. This has been going on for the last one year or so. Additional Remarks Patient is alert, pain in abd. is slightly better. Review of Systems General Constitutional: Fatigue Cardiovascular Cardiac: CAMEJO Gastrointestinal Gastrointestinal: Abdominal Pain Objective Data Data 07/02/16 07/03/16 19:00 07:00 Intake Total 360 ml Output Total 50 ml 575 ml Balance -50 ml -215 ml Intake Oral 360 ml Output Urine Total 50 ml 575 ml # Voids 2 # Bowel Movements 1 1 Vital Signs Date Time Temp Pulse Resp B/P Pulse Ox O2 Delivery O2 Flow Rate FiO2 07/03/16 16:47 97.1 74 16 108/57 95 07/03/16 13:20 97.3 82 16 107/54 96 07/03/16 08:58 97.6 82 16 124/54 98 07/03/16 08:35 18 07/03/16 04:39 98.4 90 18 125/45 98 07/03/16 00:16 98.8 92 18 117/60 98 07/02/16 21:20 98.6 89 18 114/57 98 07/02/16 18:14 109/56 -: 07/03/16 0850 07/03/16 0850 Physical Exam General Appearance: No Acute Distress, Comfortable Throat Throat Exam: Oral Mucosa [place] & Moist Neck Neck Exam: Neck Supple Pulmonary Resp Exam: Breath Sounds Equal, No Distress, Rhonchi, Decreased Bases, Diminished Breath Sounds Cardiology CV Exam: Regular Gastrointestinal/Abdomen GI Exam: Soft, Distended (bulging lesion left of umblicus, mildly tender.) Integumentary Skin Exam: Dry, Intact Extremeties Extremities Exam: Trace Edema, Pitting Edema Neurologic Neuro Exam: Alert, Awake Psychiatric Psych Exam: Appropriate Responses Assessment/Plan Problem List: (1) GILA (acute kidney injury) Plan: He has some underlying kidney disease with a creatinine of around 1.2 to 1.3. This could be related to hypertensive or renovascular disease. Previous history of GILA and dialysis with hepatorenal syndrome. GILA potentially due to volume depletion, versus contrast induced GILA with recent CT scan. History of cirrhosis - He was previously on Lasix and Spironolactone. These were held. Urine Na <5 - suggesting possible hepatorenal syndrome Creatinine is almost same. Urine out put is improving. K is normal, acidosis is also improving. (2) Abdominal wall hematoma Plan: Follow with general surgery - coagulopathy being corrected with FFPs (3) Liver cirrhosis Plan: diuretics on hold - closely monitor May consider to restart loop diruetic tomorrow if minimal UOP. (4) Hepatitis C (5) Alcohol abuse Problem Qualifiers (1) Abdominal wall hematoma: Qualified Code: S30.1XXA - Abdominal wall hematoma, initial encounter (2) Liver cirrhosis: Qualified Code: K70.30 - Alcoholic cirrhosis of liver without ascites (3) Hepatitis C: Vi Gonzalez MD Jul 03, 2016 16:49
[2016-07-03 20:00] VITALS: BP 110/57; PULSE 89; RESP 20; TEMP 97.3; O2SAT 97
[2016-07-04] VITALS: BP 125/60; PULSE 84; RESP 20; TEMP 98; O2SAT 98
[2016-07-04] MEDS: ALBUMIN HUMAN 25% 25 GM/100 ML BAGP IV SCH ×2 (02:15→13:59)
[2016-07-04] MEDS: OCTREOTIDE INJ 500 MCG in SODIUM CHLORID 0.9% 500 ML INJ 499.5 ML IV SCH ×2 (02:15→09:39)
[2016-07-04] MEDS: HYDROmorphone HCL PF 1 MG/ML VIAL IV PUSH PRN ×5 (02:28→17:11)
[2016-07-04 04:00] VITALS: BP 114/57; PULSE 92; RESP 20; TEMP 97.4; O2SAT 97
[2016-07-04] MEDS: SODIUM BICARBONATE 650 MG TAB PO SCH ×2 (06:00→13:58)
[2016-07-04] MEDS: MIDODRINE 5 MG TAB PO SCH ×3 (06:00→17:10)
[2016-07-04 08:00] VITALS: BP 133/66; PULSE 99; RESP 22; TEMP 97.6; O2SAT 99
[2016-07-04] MEDS: PSYLLIUM FIBER SF/GF 6 GM POWD PKT PO SCH (08:46)
[2016-07-04] MEDS: SODIUM CHLORIDE 0.9% FLUSH 10 ML FLUSH IV FLUSH SCH (08:47)
--- NOTE | 2016-07-04 09:38 | HHI.PR ---
Subjective Remarks has on and off abdominal pain but it seems that overall he's fine with the current pain regimen. remains afebrile. d/w the RN. Objective Vitals Vital Signs Date Time Temp Pulse Resp B/P Pulse Ox O2 Delivery O2 Flow Rate FiO2 07/04/16 08:00 97.6 99 22 133/66 99 07/04/16 06:30 20 07/04/16 04:00 97.4 92 20 114/57 97 07/04/16 00:00 98.0 84 20 125/60 98 07/03/16 20:00 97.3 89 20 110/57 97 07/03/16 16:47 97.1 74 16 108/57 95 07/03/16 13:20 97.3 82 16 107/54 96 I/O 07/03/16 07/03/16 07/03/16 07/04/16 07/04/16 07/04/16 07:00 15:00 23:00 07:00 15:00 23:00 Intake Total 360 ml 480 ml 1825 ml Output Total 575 ml 200 ml 200 ml 350 ml Balance -215 ml -200 ml 280 ml 1475 ml Intake Oral 360 ml 480 ml 120 ml IV Total 1705 ml Output Urine Total 575 ml 200 ml 200 ml 350 ml # Voids 0 # Bowel Movements 1 0 0 Result Diagram: 07/03/16 0850 07/03/16 0850 Imaging Last Impressions Consultation 06/28/16 0000 Signed Impressions: Service Date/Time: Tuesday, June 28, 2016 00:00 - CONCLUSION: The hematoma in the anterior abdominal wall is mostly semi-solid and these do not respond to catheter drainage. If these do need to be drained, surgical drainage with vigorous aspiration and suction maybe the only way to remove this. Thank you for this consultation. Baljeet Mejia MD FACR Abdomen/Pelvis CT 06/26/16 1249 Signed Impressions: Service Date/Time: Sunday, June 26, 2016 14:26 - CONCLUSION: 1. 10.1 x 14.5 cm high density mass within the left rectus sheath most consistent with rectus hematoma. 2. Diffuse induration of the subcutaneous soft tissues in the left flank possibly related to asymmetric edema however underlying cellulitis could have this appearance as well. 3. Cirrhotic appearing liver with enlargement of the spleen, varices and ascites. Findings would be consistent with cirrhosis and portal hypertension. Christian Mejia MD Objective Remarks GENERAL: obese, in no apparent distress. CARDIOVASCULAR: Regular rate and regular rhythm without murmurs, gallops, or rubs. RESPIRATORY: Clear to auscultation. Breath sounds equal bilaterally. No wheezes , rales, or rhonchi. GASTROINTESTINAL: Abdomen soft, non-tender, hematoma noted on the left periumbilical area. Normal, active bowel sounds MUSCULOSKELETAL: Extremities without clubbing, cyanosis, or edema. NEURO: Alert & Oriented x4 to person, place, time, situation. Moves all ext x4 Procedures none Medications and IVs Current Medications Ondansetron HCl (Zofran Inj) 4 mg ONCE ONCE IVP Last administered on 06/26/16 13:00; Start 06/26/16 at 13:00; Stop 06/26/16 at 13:01; Status DC Pantoprazole Sodium 40 mg 40 mg ONCE ONCE IVP Last administered on 06/26/16 13 :00; Start 06/26/16 at 13:00; Stop 06/26/16 at 13:01; Status DC Sodium Chloride (NS 1000 ml Inj) 1,000 ml @ 125 mls/hr Q8H IV Last administered on 06/26/16 12:49; Start 06/26/16 at 12:49; Stop 06/26/16 at 20:48; Status DC Hydromorphone HCl (Dilaudid Pf Inj) 1 mg ONCE ONCE IVS Last administered on 13:00; Start 06/26/16 at 13:00; Stop 06/26/16 at 13:01; Status DC Iohexol 46 ml 46 ml STK-MED ONCE IV Last administered on 06/26/16 14:47; Start 06/26/16 at 14:47; Stop 06/26/16 at 14:48; Status DC Sodium Chloride 250 ml @ 15 mls/hr ONCE ONCE IV Last administered on 18:37; Start 06/26/16 at 16:00; Stop 06/27/16 at 08:39; Status DC Sodium Chloride 1,000 ml @ 70 mls/hr [id number] IV Last administered on 06/26/16 16:15; Start 06/26/16 at 16:15; Stop 06/26/16 at 17:14; Status DC Piperacillin Sod/ Tazobactam Sod 50 ml @ 100 mls/hr ONCE ONCE IV Last administered on 06/26/16 16:30; Start 06/26/16 at 16:30; Stop 06/26/16 at 16:59; Status DC Vancomycin HCl/ Sodium Chloride (Vancomycin Inj/ NS 250 ml Inj) 250 ml @ 250 mls/hr ONCE ONCE IV Last administered on 06/26/16 17:34; Start 06/26/16 at 16: 30; Stop 06/26/16 at 17:33; Status DC Spironolactone (Aldactone) 50 mg BID PO Last administered on 06/28/16 08:40; Start 06/26/16 at 21:00; Status Hold Furosemide (Lasix) 40 mg BID@09,18 PO Last administered on 06/27/16 09:06; Start 06/26/16 at 18:00; Stop 06/27/16 at 13:57; Status DC Lactulose (Lactulose Liq) 30 ml BID PO Last administered on 06/27/16 09:06; Start 06/26/16 at 21:00; Status Hold Sodium Chloride (NS Flush) 2 ml UNSCH PRN IV FLUSH FLUSH AFTER USING IV ACCESS Last administered on 07/03/16 09:30; Start 06/26/16 at 17:15 Sodium Chloride (NS Flush) 2 ml BID IV FLUSH Last administered on 07/04/16 08: 47; Start 06/26/16 at 21:00 Ondansetron HCl (Zofran Inj) 4 mg Q6H PRN IVP NAUSEA OR VOMITING Last administered on 06/27/16 12:12; Start 06/26/16 at 17:15 Hydromorphone HCl (Dilaudid Pf Inj) 1 mg Q3H PRN IV BREAKTHROUGH PAIN Last administered on 07/01/16 18:07; Start 06/26/16 at 17:15; Stop 07/01/16 at 21:11 ; Status DC Oxycodone HCl (Roxicodone) 5 mg Q4H PRN PO PAIN SCALE 6-10 Last administered on 06/30/16 05:24; Start 06/26/16 at 17:15; Stop 07/01/16 at 21:11; Status DC Naloxone HCl 0.4 mg 0.4 mg UNSCH PRN IV SEE LABEL COMMENTS; Start 06/26/16 at 17 :15 Pharmacy Profile Note 0 ml @ 0 mls/hr UNSCH OTHER ; Start 06/26/16 at 17:30; Status Cancel Piperacillin Sod/ Tazobactam Sod 50 ml @ 100 mls/hr Q8H IV Last administered on 06/28/16 08:41; Start 06/27/16 at 00:00; Stop 06/28/16 at 13:16; Status DC Vancomycin HCl 1500 mg/Sodium Chloride 515 ml @ 250 mls/hr ONCE ONCE IV Last administered on 06/26/16 19:09; Start 06/26/16 at 18:45; Stop 06/26/16 at 20:48; Status DC Vancomycin HCl/ Sodium Chloride (Vancomycin Inj/ NS 250 ml Inj) 262 ml @ 250 mls/hr Q12H IV Last administered on 06/27/16 09:18; Start 06/27/16 at 08:00; Stop 06/27/16 at 14:00; Status DC Miscellaneous Information SPECIFIC LAB TO BE ARTUR... ONCE ONCE .XX ; Start at 19:45; Stop 06/27/16 at 19:46; Status Cancel Furosemide 20 mg 20 mg BID@09,18 PO Last administered on 06/28/16 08:41; Start 06/27/16 at 18:00; Stop 06/28/16 at 10:26; Status DC Sodium Chloride (NS 1000 ml Inj) 1,000 ml @ 100 mls/hr Q10H IV Last administered on 06/30/16 05:25; Start 06/28/16 at 11:00; Stop 06/30/16 at 13:18; Status DC Psyllium Hydrophilic Mucilloid (Metamucil Smooth Texture Sf/ Gf Pkt) 1 pkt BID PO Last administered on 07/04/16 08:46; Start 06/30/16 at 11:45 Docusate Sodium (Colace) 100 mg BID PRN PO CONSTIPATION Last administered on 20:18; Start 06/30/16 at 11:45 Midodrine 5 mg 5 mg TID@,12,17 PO Last administered on 07/04/16 06:00; Start 06/30/16 at 17:00 Octreotide Acetate/Sodium Chloride (SandoSTATIN INJ/ NS 500 ml Inj) 500.0 ml @ 50 mls/hr Q10H IV Last administered on 07/04/16 02:15; Start 06/30/16 at 16:00 Albumin Human (Albumin 25% Inj) 25 gm Q12H IV Last administered on 07/04/16 02 :15; Start 06/30/16 at 14:00 Hydromorphone HCl (Dilaudid Pf Inj) 0.2 mg Q3HR PRN IV PUSH pain >5 Last administered on 07/02/16 09:55; Start 07/01/16 at 21:15; Stop 07/02/16 at 10:52 ; Status DC Hydromorphone HCl (Dilaudid Pf Inj) 0.5 mg Q3HR PRN IV PUSH pain >5 Last administered on 07/04/16 08:52; Start 07/02/16 at 11:00 Sodium Polystyrene Sulfonate (Kayexalate Liq) 15 gm ONCE ONCE PO Last administered on 07/02/16 11:38; Start 07/02/16 at 11:00; Stop 07/02/16 at 11:07 ; Status DC Phytonadione (Mephyton) 5 mg ONCE ONCE PO Last administered on 07/02/16 11:39 ; Start 07/02/16 at 11:00; Stop 07/02/16 at 11:08; Status DC Sodium Bicarbonate (Sodium Bicarbonate) 650 mg Q8HR PO Last administered on 06:00; Start 07/02/16 at 17:00 A/P Assessment and Plan A/P Rectus Sheath Hematoma (spontaneous) Acute Blood Loss Anemia Coagulopathy secondary to Cirrhosis Coagulopathy and Anemia/Bleed are stable. Transfuse Blood and/or FFP as needed Follow H/H and INR surgery follow-up appreciated and no plan for surgical intervention at this time. IR consulted but the hematoma is semisolid and can't be drained via catheter. PRN pain treatments Abdominal Wall Cellulitis Leukocytosis Improving off antibiotics evaluated by ID. GILA creatinine is trending up. Etiology for the elevated creatinine may be related to bleed/hematoma and contrast on midodrine, Octreotide,sodium bicarbonate and albumin Follow renal function Nephrology following hyperkalemia; resolved. consulted PT. will consult palliative care. Discharge Planning palliative care consulted. dc planning to SNF. d/w the case management. Reyna John MD Jul 04, 2016 09:38
[2016-07-04] MEDS ORDERED: OXYC-392 PO (09:41)
--- NOTE | 2016-07-04 11:18 | HHI.NPPN ---
Subjective General Problems: Anemia, Edema Renal Failure: Chronic, Acute, Stage III History of Present Illness 51-year-old male with past medical history of diabetes mellitus which is longstanding, history of cirrhosis of the liver with alcoholism and hepatitis C, history of acute kidney injury in the past who came to the hospital because of abdominal wall hematoma and coagulopathy. I was called to see the patient because of elevated BUN and creatinine. His creatinine on admission was 1.6 and has gone up to 2.3. Previously he had a creatinine of 1.1-1.2. This has been going on for the last one year or so. Additional Remarks Patient is alert, pain in abd. is slightly better, no SOB. Review of Systems General Constitutional: Fatigue Cardiovascular Cardiac: CAMEJO Gastrointestinal Gastrointestinal: Abdominal Pain Objective Data Data 07/03/16 07/04/16 19:00 07:00 Intake Total 2305 ml Output Total 400 ml 350 ml Balance -400 ml 1955 ml Intake Oral 600 ml IV Total 1705 ml Output Urine Total 400 ml 350 ml # Voids 0 # Bowel Movements 0 Vital Signs Date Time Temp Pulse Resp B/P Pulse Ox O2 Delivery O2 Flow Rate FiO2 07/04/16 08:00 97.6 99 22 133/66 99 07/04/16 06:30 20 07/04/16 04:00 97.4 92 20 114/57 97 07/04/16 00:00 98.0 84 20 125/60 98 07/03/16 20:00 97.3 89 20 110/57 97 07/03/16 16:47 97.1 74 16 108/57 95 07/03/16 13:20 97.3 82 16 107/54 96 -: 07/03/16 0850 07/03/16 0850 Physical Exam General Appearance: No Acute Distress, Comfortable Throat Throat Exam: Oral Mucosa [place] & Moist Neck Neck Exam: Neck Supple Pulmonary Resp Exam: Breath Sounds Equal, No Distress, Rhonchi, Decreased Bases, Diminished Breath Sounds Cardiology CV Exam: Regular Gastrointestinal/Abdomen GI Exam: Soft, Distended (bulging lesion left of umblicus, mildly tender.) Integumentary Skin Exam: Dry, Intact Extremeties Extremities Exam: Trace Edema, Pitting Edema Neurologic Neuro Exam: Alert, Awake Psychiatric Psych Exam: Appropriate Responses Assessment/Plan Problem List: (1) GILA (acute kidney injury) Plan: He has some underlying kidney disease with a creatinine of around 1.2 to 1.3. This could be related to hypertensive or renovascular disease. Previous history of GILA and dialysis with hepatorenal syndrome. GILA potentially due to volume depletion, versus contrast induced GILA with recent CT scan. History of cirrhosis - He was previously on Lasix and Spironolactone. These were held. Urine Na <5 - suggesting possible hepatorenal syndrome. Urine out put is improving. No new [facility] Palliative care consulted. (2) Abdominal wall hematoma Plan: Follow with general surgery - coagulopathy being corrected with FFPs (3) Liver cirrhosis Plan: diuretics on hold - closely monitor May consider to restart loop diruetic tomorrow if minimal UOP. (4) Hepatitis C (5) Alcohol abuse Problem Qualifiers (1) Abdominal wall hematoma: Qualified Code: S30.1XXA - Abdominal wall hematoma, initial encounter (2) Liver cirrhosis: Qualified Code: K70.30 - Alcoholic cirrhosis of liver without ascites (3) Hepatitis C: Vi Gonzalez MD Jul 04, 2016 11:18
[2016-07-04 12:00] VITALS: BP 126/57; PULSE 95; RESP 22; TEMP 98.3; O2SAT 98
--- NOTE | 2016-07-04 13:43 | PD.CONS ---
Consult Service Palliative Care Consult Requested By MD Alvaro Primary Care Physician Non-Staff Reason for Consultation a. To assist with evaluation and management of symptoms including: pain, anxiety, b. To assist medical decision maker(s) with: better understanding of current medical conditions; weighing benefits/burdens of medical treatment options; making medical treatment decisions. (Adeola Coon) HPI History of Present Illness This is a 51-year-old male who presented to the emergency department complaining of abdominal pain. He has a history of liver cirrhosis, abdominal hernia as well as chronic abdominal pain. He was admitted to hospice 2 weeks prior for pain management. On presentation he was found to have leukocytosis, anemia, thrombocytopenia that was 124 on admission and is now 80-he complained of easy bruising. He was also noted to have hyponatremia, elevated potassium CKD stage III with a GFR of 37, that is now progressed to 16 and nephrology has been consulted. Ferritin levels were elevated, consistent with cirrhosis, ammonia level was 46 at time of admission, bilirubin, and AST was also elevated. Also, his albumin was 1.5. He presents with significant amount of ascites as well as peripheral edema. Abdominal CT identified a 10 x 14 cm high density mass within the left rectus sheath consistent with a rectus hematoma. There is diffuse induration of the subcutaneous soft tissue in the left flank, possibly related to asymmetric edema, however underlying cellulitis could have this appearance as well. Cirrhotic appearing liver with enlargement of the spleen, varices and ascites. Findings consistent with cirrhosis and portal hypertension. Additional comment was made relative to the abdominal hematoma in that that it is a mostly semisolid mass and does not respond to catheter drainage. It would require surgical drainage with vigorous aspiration and suction to remove this. Despite transfusion of 1 unit of PRBCs and 4 units of FFPhemoglobin remains at 8.7 and platelets are now 80. He continues with leukocytosis as well as bandemia, which is progressively getting worse. ABX's have been discontinued He has a history of elevated ammonia levels and has been on lactulose. He has a history chronic kidney disease and has been on dialysis in the past. He also has a history of anxiety, asthma, depression, diabetes, hepatitis C, hypertension and sleep apnea. At the time of my visit, he is awake, alert to place and time, but reports his location as being [place] in spite of efforts to reorient him. He states his father's name and location. He tells me that he has 2 daughters. He is unable to tell me any information relative to his admission, nor where he was living prior to admission. He tells me that he just wants to be comfortable and not have any pain. He is able to follow some commands for me. However, he become agitated with my lengthy questioning. Clinical records indicate that he presented to the hospital 6 times in 2016. He's had recurrent lower extremity cellulitis. It appears that he was first diagnosed with alcoholic hepatitis and cirrhosis in 2012 I was able to speak with his father by phone and attain further information. He had been on hospice for 2 weeks prior to admission. He was living in a fpc house prior to admission as well. He's had multiple admissions to the hospital [facility]. His father is designated healthcare surrogate and wishes to continue with hospice (Adeola Coon) Review of Systems ROS Limitations: Clinical Condition, Altered Mental Status Constitutional: COMPLAINS OF: Fatigue, Weight gain, Pain, Generalized weakness Endocrine: DENIES: Polydipsia, Polyuria Ears, nose, mouth, throat: DENIES: Nasal discharge, Oral lesions, Throat pain, Running Nose Respiratory: COMPLAINS OF: Apneas, Shortness of breath, DENIES: Hemoptysis, Sputum production Cardiovascular: COMPLAINS OF: Dyspnea on Exertion, Lower Extremity Edema, DENIES: Chest pain, Palpitations Gastrointestinal: COMPLAINS OF: Abdominal pain, Diarrhea Genitourinary: COMPLAINS OF: Urinary frequency Musculoskeletal: COMPLAINS OF: Joint pain Hematologic/Lymphatics: COMPLAINS OF: Bruising Immunologic/Allergic: DENIES: Eczema, Urticaria Neurologic: COMPLAINS OF: Poor Balance Psychiatric: COMPLAINS OF: Anxiety, Confusion, Depression, DENIES: Suicidal Ideation (information is obtained from discussion with the patient as well as the clinical record. Due to his current encephalopathy.) (Adeola Coon) Past Family Social History Coded Allergies: Morphine (Verified Adverse Reaction, Intermediate, Nausea/Vomiting, 06/26/16 ) *MDRO Multi-Drug Resistant Organism (Verified Adverse Reaction, Unknown, ) MRSA (arm wound) - 08/2008 Past Medical History Cirrhosis with past history of alcohol abuse and hepatitis C s/p treatment Diabetes Coagulopathy secondary to end-stage liver disease degenerative disc diseasecervical. Hypertension. Major depressive disorder. Abdominal wall hematoma. Chronic kidney disease late stage III Elevated ammonia levels on lactulose Abdominal ascites Chronic pain syndromeabdomen Past Surgical History Tib-fib surgery 2 on both legs, 4 surgeries total Reported Medications Is 640 mg 3 times a day Aldactone 50 mg twice a day Lactulose 10 g/15 mL's30 mL's 3 times a day. Vitamin D 500 mg twice a day Potassium daily. Current Medications Medications (Trade) Dose Ordered Sig/Srini Route Start Time Stop Time Status Last Admin (Aldactone) 50 mg BID PO 06/26/16 21:00 Hold 06/28/16 08:40 (Lactulose Liq) 30 ml BID PO 06/26/16 21:00 Hold 06/27/16 09:06 (NS Flush) 2 ml UNSCH PRN IV FLUSH 06/26/16 17:15 07/03/16 09:30 (NS Flush) 2 ml BID IV FLUSH 06/26/16 21:00 07/04/16 08:47 (Zofran Inj) 4 mg Q6H PRN IVP 06/26/16 17:15 06/27/16 12:12 (Narcan Inj) 0.4 mg UNSCH PRN IV 06/26/16 17:15 (Metamucil Smooth Texture Sf/ Gf Pkt) 1 pkt BID PO 06/30/16 11:45 07/04/16 08:46 (Colace) 100 mg BID PRN PO 06/30/16 11:45 07/02/16 20:18 Midodrine 5 mg 5 mg TID@07,12,17 PO 06/30/16 17:00 07/04/16 11:07 (SandoSTATIN INJ/ NS 500 ml Inj) 500.0 ml @ 50 mls/hr Q10H IV 06/30/16 16:00 07/04/16 02:15 (Albumin 25% Inj) 25 gm Q12H IV 06/30/16 14:00 07/04/16 02:15 (Dilaudid Pf Inj) 0.5 mg Q3HR PRN IV PUSH 07/02/16 11:00 07/04/16 08:52 (Sodium Bicarbonate) 650 mg Q8HR PO 07/02/16 17:00 07/04/16 06:00 Family History Father is living and has heart disease, blind from macular degeneration Mother of multiple myeloma Substance Use Tobacco: Reports prior history of one pack per day Alcohol: Active alcoholic noted in the record in December 2015 level is less than 3 on this admission Prescription med abuse: Illicits:Reports prior history of IV drug use Psychosocial History This is a 51-year-old male who is . He has 2 daughters. 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 He has been an active alcoholic for several years. He does have a history of IV drug use as well as tobacco. He has major depressive disorder in the past has made comments relative to suicide. His father is still living. He has no history. Spiritual/Cultural Factors [employer] currently an affiliated (Adeola Coon) Health Care Surrogate: Completed, but not made available (his father is listed as health care surrogate) Durable Power of Showroom Salesperson: Completed, but not made available Health Care Surrogate(s): Jasmin Juddr, father, - has documentation at home Family/friends goals: Father stated he had a signed DNR created when he enrolled with hospice. ( Adeola Coon) Physical Exam Vital Signs Date Time Temp Pulse Resp B/P Pulse Ox O2 Delivery O2 Flow Rate FiO2 07/04/16 12:00 98.3 95 22 126/57 98 07/04/16 08:00 97.6 99 22 133/66 99 07/04/16 06:30 20 07/04/16 04:00 97.4 92 20 114/57 97 07/04/16 00:00 98.0 84 20 125/60 98 07/03/16 20:00 97.3 89 20 110/57 97 07/03/16 16:47 97.1 74 16 108/57 95 07/03/16 13:20 97.3 82 16 107/54 96 07/03/16 07/04/16 19:00 07:00 Intake Total 2305 ml Output Total 400 ml 350 ml Balance -400 ml 1955 ml Intake Oral 600 ml IV Total 1705 ml Output Urine Total 400 ml 350 ml # Voids 0 # Bowel Movements 0 Exam CONSTITUTIONAL/GENERAL: This is an pale adequately nourished patient, complaining of abdominal discomfort TUBES/LINES/DRAINS: IV lines SKIN: No jaundice, Ecchymoses on upper extremities. No wounds seen anteriorly. Skin temperature appropriate. Not diaphoretic. HEAD: Atraumatic. Normocephalic. EYES: Pupils equal and round and reactive. Extraocular motions intact. No scleral icterus. No injection or drainage. Fundi not examined. ENT: Hearing grossly normal. Nose without bleeding or purulent drainage. Throat without visible erythema, exudates, masses, or lesions. NECK: Trachea midline. Supple, nontender. No palpable thyroid enlargement or nodularity. CARDIOVASCULAR: Regular rate and rhythm with murmurs, no gallops, or rubs. JVD. Peripheral pulses symmetric. RESPIRATORY/CHEST: Symmetric, unlabored respirations. Clear to auscultation. Breath sounds equal bilaterally. No wheezes, rales, or rhonchi. GASTROINTESTINAL: Abdomen large, soft, diffuse ascites, tenderness to the left side (site of hematoma). Unable to discern through palpation hepato- splenomegaly, or palpable masses. Due to ascites. Bowel sounds present. GENITOURINARY: Without palpable bladder distension. MUSCULOSKELETAL: 3 plus pitting edema noted from feet through upper thigh, No joint tenderness or effusion noted. No calf tenderness. No mottling or clubbing. LYMPHATICS: No palpable cervical or supraclavicular adenopathy. NEUROLOGICAL: Awake and alert times 2oriented to year and hospital but not city. Motor and sensory grossly within normal limits. Follows commands. Cognitively dull, moves all extremities. Encephalopathic PSYCHIATRIC: No obvious anxiety/depression. no apparent hallucinations or other psychotic thought process. (Adeola Coon) Diagnostic Tests Laboratory Laboratory Tests Test 07/02/16 07/03/16 09:31 08:50 Prothrombin Time 24.1 SEC 24.7 SEC (9.8-11.6) (9.8-11.6) Prothromb Time International 2.1 RATIO 2.2 RATIO Ratio Sodium Level 133 MEQ/L 134 MEQ/L (136-145) (136-145) Potassium Level 5.7 MEQ/L 5.0 MEQ/L (3.5-5.1) (3.5-5.1) Chloride Level 103 MEQ/L 105 MEQ/L (98-107) (98-107) Carbon Dioxide Level 17.9 MEQ/L 19.6 MEQ/L (21.0-32.0) (21.0-32.0) Anion Gap 12 MEQ/L (5-15) 9 MEQ/L (5-15) Blood Urea Nitrogen 68 MG/DL (7-18) 72 MG/DL (7-18) Creatinine 4.06 MG/DL 3.96 MG/DL (0.60-1.30) (0.60-1.30) Estimat Glomerular Filtration 16 ML/MIN (>89) 16 ML/MIN (>89) Rate Random Glucose 137 MG/DL 122 MG/DL (74-106) (74-106) Calcium Level 8.1 MG/DL 8.3 MG/DL (8.5-10.1) (8.5-10.1) White Blood Count 17.8 TH/MM3 (4.0-11.0) Red Blood Count 2.47 MIL/MM3 (4.50-5.90) Hemoglobin 8.7 GM/DL (13.0-17.0) Hematocrit 25.1 % (39.0-51.0) Mean Corpuscular Volume 101.7 FL (80.0-100.0) Mean Corpuscular Hemoglobin 35.4 PG (27.0-34.0) Mean Corpuscular Hemoglobin 34.8 % Concent (32.0-36.0) Red Cell Distribution Width 16.0 % (11.6-17.2) Platelet Count 80 TH/MM3 (150-450) Mean Platelet Volume 8.5 FL (7.0-11.0) Neutrophils (%) (Auto) 85.9 % (16.0-70.0) Lymphocytes (%) (Auto) 5.6 % (9.0-44.0) Monocytes (%) (Auto) 5.8 % (0.0-8.0) Eosinophils (%) (Auto) 1.8 % (0.0-4.0) Basophils (%) (Auto) 0.9 % (0.0-2.0) Neutrophils # (Auto) 15.3 TH/MM3 (1.8-7.7) Lymphocytes # (Auto) 1.0 TH/MM3 (1.0-4.8) Monocytes # (Auto) 1.0 TH/MM3 (0-0.9) Eosinophils # (Auto) 0.3 TH/MM3 (0-0.4) Basophils # (Auto) 0.2 TH/MM3 (0-0.2) CBC Comment AUTO DIFF Differential Total Cells 100 Counted Neutrophils % (Manual) 68 % (16-70) Band Neutrophils % 25 % (0-6) Lymphocytes % 5 % (9-44) Monocytes % 2 % (0-8) Neutrophils # (Manual) 16.6 TH/MM3 (1.8-7.7) Differential Comment FINAL DIFF MANUAL Toxic Granulation 1+ (NORMAL) Platelet Estimate LOW (NORMAL) Platelet Morphology Comment NORMAL (NORMAL) (Adeola Coon) Result Diagram: 07/03/16 0850 07/03/16 0850 Microbiology 06/26/16. Urine no growth. 06/26/16. Blood cultures no growth Imaging Abdominal CT 06/26/16 10.1 x 14.5, high density mass within the left rectus sheath mostly consistent with rectus hematoma. Diffuse induration of the subcutaneous soft tissues in the left flank, possibly related to asymmetric edema, however underlying cellulitis could have this appearance as well. Cirrhotic appearing liver with enlargement of the spleen, varices and ascites. Consistent with cirrhosis and portal hypertension (Adeola Coon) Patient/Family Conference Present at Family Conference: MÓNICA Dangelo and , Nirmala Family Conference Location: Telephone Issues Discussed: * Palliative care role, purpose, approach * Additional medical, psychosocial, and spiritual history * Patients general health, functional status, and cognitive changes in the months leading up to the current hospitalization * Patient/family understanding of the current medical problems * Patient/family understanding of prognosis * Patients goals of care as best understood from advance directives and/or conversations and/or values * Current medical treatment options and benefits/burdens of those options * Likely scenarios comparing ongoing aggressive care with a transition to comfort measures only * Questions answered to the best of my ability * Palliative care contact information provided (Adeola Coon) Assessment and Plan Disease Oriented Problem List: (1) Liver disease, chronic, with cirrhosis (2) Ascites due to alcoholic cirrhosis (3) Edema, peripheral Comment: Albumin levels 1.6 (4) Chronic kidney disease (CKD) Comment: Underlying see CKD, now with declining renal functions. GFR at 16. (5) GILA (acute kidney injury) (6) Coagulopathy Comment: Platelets continue to decrease despite 4 units of FFP (7) Abdominal wall hematoma Comment: Semisolid mass resulting in continued discomfort. Unable to be evacuated without surgical intervention Symptom Scale: (1) Pain 0-10 Scale: 7 Comment: Has IV Dilaudid 0.5 milligrams IV available as needed - had 6 doses on 07/03/16. Recommend scheduled (2) Confusion 0-10 Scale: Unable to quantify Comment: Likely due to metabolic encephalopathy - fails to have insight (3) Anxiety Comment: States that he gets anxious and he just wants to be comfortable. 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 Spiritual: Faith, an affiliated Legal: His father. MÓNICA Dangelo is his healthcare surrogate and has a document available Ethical issues impacting care: Important Contacts MÓNICA Dangelo - father, Mickie - [phone] Nirmala Dangelo father's - [phone] Prognosis Prognosis is poor in light of his advanced liver disease and declining renal function, combined with coagulopathy and sepsis. He is having chronic pain due to a abdominal wall hematoma that evolved secondary to the coagulopathy. He is also demonstrating metabolic encephalopathy. Appropriate for hospice Code Status: No Code (per discussion with fatherpatient recently signed a DNR with hospice.) Plan Decision Maker: MÓNICA Dangelo, father, Code Status: No code DNR Family Discussion: I was able to speak with his father. MÓNICA as well as the father's , Nirmala. MÓNICA is listed as the clinical medical decision maker. Reviewed the patient's current clinical stat state and his decline since admission. Father states that he was hopeful that he would be able to go to rehabilitation and get his "life straightened out". I explained to him that regardless of whether or not his son was able to get sober and stay sober that the disease had already taken its course on his body. The father commented that it had been a difficult couple of years and he has watched his sons life decline. He is agreeable to continuing with hospice at this time. He inquires about [facility] in services. He states that previously the patient was with [facility] hospice for about 2 weeks. The goal of hospice was pain management on the recommendation of the patient's primary care physician. His father was unaware of the various components of the patient's current critical clinical status. Hospice consult : Consult placed to [facility], with goal to transition to care center Symptoms: Pain - due to abdominal wall hematoma, although present in prior records before this admission confusion- metabolic encephalopathy due to ammonia levels, sepsis, renal and liver failure anxiety Palliative care phone number provided - will follow during hospital stay. ( Adeola Coon) Thank you for the opportunity to participate in the care of Mr. Dangelo. (Adeola Coon) Attestation To help prompt me to consider important information that might be impacting today's encounter and assessment, information from prior notes written by myself or my colleagues may have been "brought forward" into today's note. My signature on this note, however, is an attestation that I personally performed the exam, history, and/or decision-making noted today, and, unless otherwise indicated, the interactions with patient, family, and staff as well as the review of records all occurred today. I also attest that the listed assessment and stated plan reflect my best clinical judgment today based on the combination of historical information, prior notes, and today's exam/ interactions. When time spent is documented, it refers only to time spent today by the signer, or if indicated, combined time spent today by collaborating physician/nurse practitioner. (Adeola Coon) Collaborating MD Comments . Chart reviewed. Cased discussed with palliative care COATING AND EMBOSSING UNIT OPERATOR. Above COATING AND EMBOSSING UNIT OPERATOR note reviewed and I concur. . (Grant Hill MD) Adeola Coon Jul 04, 2016 13:43 Grant Hill MD August 19, 2016 15:06
--- NOTE | 2016-07-04 16:14 | HHI.DCPOC ---
Discharge Care Plan Diagnosis: (1) Abdominal wall hematoma Your Health Problems Are: Bleeding Tendency Chronic Pain Goals to Promote Your Health * To prevent worsening of your condition and complications * To maintain your health at the optimal level Directions to Meet Your Goals Take your medications as prescribed Follow your dietary instruction Follow activity as directed Keep your appointments as scheduled Take your immunizations and boosters as scheduled If your symptoms worsen call your PCP, if no PCP go to Urgent Care Center or Emergency Room Smoking is Dangerous to Your Health. Avoid second hand smoke Call the 24-hour hour crisis hotline for domestic abuse at Reyna John MD Jul 04, 2016 16:14
--- NOTE | 2016-07-04 16:15 | HHI.DS ---
Discharge Summary Admission Date Jun 26, 2016 at 16:32 Discharge Date: Jul 04, 2016 Admitting Diagnosis abdominal wall hematoma. Liver cirrhosis. Coagulopathy. (1) Abdominal wall hematoma ICD Code: S30.1XXA Diagnosis: Principal Procedures none Brief History - From Admission 51-year-old male with a past medical history of cirrhosis who presents with progressive worsening abdominal pain and swelling. The patient states that in February he noticed the swelling of his left abdominal wall. He was seen by his PCP and subsequently at the [facility] in [place] and had imaging done with results consistent with a hernia. He states that his PCP has been managing the swelling with tramadol and had advised the patient to get physical therapy and rehabilitation. The patient states that the pain and swelling have been getting progressively worse since February. He states the pain is constantly 8/ 10 in severity, and up to 10/10 whenever he tries to move. 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 He states that his hepatitis C has been treated. He admits to subjective chills, no fevers. He denies any chest pain, shortness breath, nausea, vomiting, dysuria. He has loose stools from lactulose, states he's actually been increasing his dose lately because he has been noticing confusion. He reports easy bruising. He states occasionally he has dark stools and dark urine in the morning. CBC/BMP: 07/03/16 0850 07/03/16 0850 Significant Findings Laboratory Tests Test 07/02/16 07/03/16 09:31 08:50 Prothrombin Time 24.1 SEC 24.7 SEC (9.8-11.6) (9.8-11.6) Sodium Level 133 MEQ/L 134 MEQ/L (136-145) (136-145) Potassium Level 5.7 MEQ/L (3.5-5.1) Carbon Dioxide Level 17.9 MEQ/L 19.6 MEQ/L (21.0-32.0) (21.0-32.0) Blood Urea Nitrogen 68 MG/DL (7-18) 72 MG/DL (7-18) Creatinine 4.06 MG/DL 3.96 MG/DL (0.60-1.30) (0.60-1.30) Estimat Glomerular Filtration 16 ML/MIN (>89) 16 ML/MIN (>89) Rate Random Glucose 137 MG/DL 122 MG/DL (74-106) (74-106) Calcium Level 8.1 MG/DL 8.3 MG/DL (8.5-10.1) (8.5-10.1) White Blood Count 17.8 TH/MM3 (4.0-11.0) Red Blood Count 2.47 MIL/MM3 (4.50-5.90) Hemoglobin 8.7 GM/DL (13.0-17.0) Hematocrit 25.1 % (39.0-51.0) Mean Corpuscular Volume 101.7 FL (80.0-100.0) Mean Corpuscular Hemoglobin 35.4 PG (27.0-34.0) Platelet Count 80 TH/MM3 (150-450) Neutrophils (%) (Auto) 85.9 % (16.0-70.0) Lymphocytes (%) (Auto) 5.6 % (9.0-44.0) Neutrophils # (Auto) 15.3 TH/MM3 (1.8-7.7) Monocytes # (Auto) 1.0 TH/MM3 (0-0.9) Band Neutrophils % 25 % (0-6) Lymphocytes % 5 % (9-44) Neutrophils # (Manual) 16.6 TH/MM3 (1.8-7.7) Toxic Granulation 1+ (NORMAL) Platelet Estimate LOW (NORMAL) Imaging Last Impressions Consultation 06/28/16 0000 Signed Impressions: Service Date/Time: Tuesday, June 28, 2016 00:00 - CONCLUSION: The hematoma in the anterior abdominal wall is mostly semi-solid and these do not respond to catheter drainage. If these do need to be drained, surgical drainage with vigorous aspiration and suction maybe the only way to remove this. Thank you for this consultation. Baljeet Mejia MD FACR Abdomen/Pelvis CT 06/26/16 1249 Signed Impressions: Service Date/Time: Sunday, June 26, 2016 14:26 - CONCLUSION: 1. 10.1 x 14.5 cm high density mass within the left rectus sheath most consistent with rectus hematoma. 2. Diffuse induration of the subcutaneous soft tissues in the left flank possibly related to asymmetric edema however underlying cellulitis could have this appearance as well. 3. Cirrhotic appearing liver with enlargement of the spleen, varices and ascites. Findings would be consistent with cirrhosis and portal hypertension. Christian Mejia MD PE at Discharge GENERAL: obese, in no apparent distress. CARDIOVASCULAR: Regular rate and regular rhythm without murmurs, gallops, or rubs. RESPIRATORY: Clear to auscultation. Breath sounds equal bilaterally. No wheezes , rales, or rhonchi. GASTROINTESTINAL: Abdomen soft, non-tender, hematoma noted on the left periumbilical area. Normal, active bowel sounds MUSCULOSKELETAL: Extremities without clubbing, cyanosis, or edema. NEURO: Alert & Oriented x4 to person, place, time, situation. 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 Transfuse Blood and/or FFP as needed Follow H/H and INR surgery follow-up appreciated and no plan for surgical intervention at this time. IR consulted but the hematoma is semisolid and can't be drained via catheter. PRN pain treatments Abdominal Wall Cellulitis Leukocytosis Improving off antibiotics evaluated by ID. GILA creatinine is trending up. Etiology for the elevated creatinine may be related to bleed/hematoma and contrast on midodrine, Octreotide,sodium bicarbonate and albumin Follow renal function Nephrology following hyperkalemia; resolved. consulted PT. will consult palliative care. Pt Condition on Discharge: Deteriorating Discharge Disposition: Hospice/Med Facility Discharge Time: > 30 minutes Discharge Instructions DIET: Follow Instructions for: Renal Failure Diet Activities you can perform: Regular-No Restrictions Follow up Referrals: PCP Follow-up New Medications: Oxycodone (Oxycodone) 5 Mg Tab 5 MG PO Q4H PRN PAIN #20 Ref 0 TAB Continued Medications: Lactulose Liq (Lactulose Liq) 10 Gm/15 Ml Soln 30 ML PO TID Ref 0 ML Pantothenic Acid (Pantothenic Acid) 500 Mg Tab 1 TAB PO BID Discontinued Medications: Furosemide (Lasix) 40 Mg Tab 40 MG PO TID #60 Ref 0 TAB Potassium Chloride ER (Potassium Chloride ER) Unknown Strength Cap 1 TAB PO DAILY Electrolyte Replacement #30 Ref 0 CAP Spironolactone (Aldactone) 50 Mg Tab 50 MG PO BID #60 Ref 0 TAB Reyna John MD Jul 04, 2016 16:15
--- NOTE | 2016-07-04 16:17 | HHI.PR ---
Addendum To [facility] Progress Not Reason for addendum: Additonal documentation (palliative care consult appreciated and case was d/w second floor operator; patient will be discharged to hospice care center.time spent 35 min.) Reyna John MD Jul 04, 2016 16:17
[2016-07-04 16:25] VITALS: BP 115/53; PULSE 91; RESP 16; TEMP 97.4; O2SAT 95
== END 2016-07-04 18:15 | disposition hospice, inpatient (51) | DRG 871 ==
LOC: NEPD 11:24 → NEDA 16:32 → N05B 22:16
PROVIDERS: ADMIT Internal Medicine; ATTEND Internal Medicine
PROC: 30233K1 Transfusion of Nonautologous Frozen Plasma into Peripheral Vein, Percutaneous Approach (ICD-10-PCS; principal; 2016-06-26)
PROC: 30233N1 Transfusion of Nonautologous Red Blood Cells into Peripheral Vein, Percutaneous Approach (ICD-10-PCS; 2016-06-27)
PROC: 30233N1 Transfusion of Nonautologous Red Blood Cells into Peripheral Vein, Percutaneous Approach (ICD-10-PCS; 2016-06-28)
DX: A41.9 Sepsis, unspecified organism (principal); N17.0 Acute kidney failure with tubular necrosis; D68.4 Acquired coagulation factor deficiency; K70.31 Alcoholic cirrhosis of liver with ascites; E11.22 Type 2 diabetes mellitus with diabetic chronic kidney disease; K76.6 Portal hypertension; N39.0 Urinary tract infection, site not specified; N18.3 Chronic kidney disease, stage 3 (moderate); E87.1 Hypo-osmolality and hyponatremia; D62 Acute posthemorrhagic anemia; L03.311 Cellulitis of abdominal wall; L03.119 Cellulitis of unspecified part of limb; M79.81 Nontraumatic hematoma of soft tissue; E87.70 Fluid overload, unspecified; K46.9 Unspecified abdominal hernia without obstruction or gangrene; D69.6 Thrombocytopenia, unspecified; F32.9 Major depressive disorder, single episode, unspecified; B19.20 Unspecified viral hepatitis C without hepatic coma; F41.9 Anxiety disorder, unspecified; G47.30 Sleep apnea, unspecified; G89.29 Other chronic pain; J45.909 Unspecified asthma, uncomplicated; G43.909 Migraine, unspecified, not intractable, without status migrainosus; K70.10 Alcoholic hepatitis without ascites; M19.90 Unspecified osteoarthritis, unspecified site; R01.1 Cardiac murmur, unspecified; I12.9 Hypertensive chronic kidney disease with stage 1 through stage 4 chronic kidney disease, or unspecified chronic kidney disease; D72.825 Bandemia; M50.30 Other cervical disc degeneration, unspecified cervical region; D53.9 Nutritional anemia, unspecified; K59.00 Constipation, unspecified; K72.90 Hepatic failure, unspecified without coma; E87.5 Hyperkalemia; F10.10 Alcohol abuse, uncomplicated; R60.0 Localized edema
CPT/HCPCS: 36430; 74177; 76937; 80048; 80053; 80307; 81001; 82140; 82607; 82728; 82746; 83036; 83540; 83550; 83605; 83690; 83935; 84300; 85007; 85014; 85018; 85025; 85027; 85610; 85730; 86850; 86900; 86901; 86920; 86927; 87040; 87086; 87205; 93005; 96361; 96374; 96375; C9113; J1170; J2354; J2405; J2543; J3370; J7030; J7040; J7050; P9016; P9017; P9047; Q9967